=== PATIENT | male | born 1945 | race Caucasian/White ===

== ENCOUNTER → 2018-02-09 10:51 | Outpatient (CLI) | payer MEDICARE, OTHER, SELFPAY ==
--- NOTE | 2018-02-09 | DI.US.S_ITS ---
PROCEDURE: US THYROID INDICATIONS: CHRONIC SINUSITIS/DYSPHAGIA TECHNIQUE: Real-time scanning was performed of the thyroid gland, with image documentation. COMPARISON: None. FINDINGS: Right: Thyroid lobe measures 4.2 x 1.8 x 1.6 cm, and is homogeneous in echotexture. Colloid cyst measuring 3 mm Left: Thyroid lobe measures 4.4 x 1.7 x 1.8 cm, and is homogenous in echotexture. Colloid cyst measuring 3 mm Isthmus: 3.0 mm thick. IMPRESSION: Bilateral sub-5 mm colloid cyst. Dictated by: Reggie WALDRON Interpreted: Wendy Estrada MD on 02/09/2018 at 13:04 Approved by: Wendy Estrada M.D. on 02/09/2018 at 15:10
--- NOTE | 2018-02-09 | DI.CT.S_ITS ---
PROCEDURE: CT SINUS SCREEN WO CON INDICATIONS: CHRONIC SINUSITIS/DYSPHAGIA TECHNIQUE: Noncontrast 3.0 mm axial images acquired from the frontal sinuses to the mid-sella, with coronal and sagittal reformats. For radiation dose reduction, the following was used: automated exposure control, adjustment of mA and/or kV according to patient size. COMPARISON: None. FINDINGS: Image quality: Excellent. Maxillary Sinuses: A portion of the medial wall of the right maxillary sinus has been removed. There is a tiny mucous retention cyst seen along lateral inferior aspect of the left maxillary sinus, as on series 2 image 6. Sinuses are otherwise clear. Ethmoid Air Cells: Portions of the right ethmoid air cell septations have been removed. Sinuses are clear. Sphenoid Sinuses: No bony remodeling or destruction. Sinuses are clear. Frontal Sinuses: No bony remodeling or destruction. Sinuses are clear. Ostiomeatal Complexes: Prior right-sided antrectomy. The left ostiomeatal complex is mildly consultation narrowing, yet remains patent. Miscellaneous: Visualized intra-orbital contents are normal. No josh bullosa or paradoxical turbinate curvature. There is mild leftward nasal septal deviation. IMPRESSION: No significant active paranasal sinus disease can be seen. Right-sided prior sinus surgery, with antrectomy and removal of portions of the ethmoid air cell septations. Mild leftward nasal septal deviation noted. Dictated by: Raymond Whitman M.D. on 02/09/2018 at 11:05 Approved by: Raymond Whitman M.D. on 02/09/2018 at 11:10
== END ==
PROVIDERS: Family Provider Family Medicine; PCP Family Medicine; Visit Provider Otolaryngology
DX: J32.9 Chronic sinusitis, unspecified (principal); J34.2 Deviated nasal septum; R13.10 Dysphagia, unspecified
CPT/HCPCS: 70486; 76536

== ENCOUNTER → 2018-04-10 15:04 | Outpatient (CLI) | payer MEDICARE, OTHER, SELFPAY ==
[2018-04-10 15:40] LABS: Add Manual Diff / Slide Review NO; Hematocrit 41.9 % (41-53); Hemoglobin 14.1 g/dL (13.5-17.5); Lymphocytes Percent Auto 26.7 % (25-40); Mean Corpuscular HGB Conc 33.7 % (30-36); Mean Corpuscular Hemoglobin 31.1 PG (26-34); Mean Corpuscular Volume 92.2 fL (80-100); Monocytes Percent Auto 9.6 % (3-14); Neutrophils Absolute Auto 4000 /uL (3000-5900); Neutrophils Percent Auto 59.7 % (50-75); Platelet Count 256 X10^3/uL (150-400); Red Blood Cell Count 4.55 X10^6/uL (4.5-5.9); Red Cell Distribution Width 15.3 % (11.6-14.8); White Blood Cell Count 6.6 X10^3/uL (4.5-11.0)
[2018-04-10 15:47] LABS: Blood Urea Nitrogen 19 mg/dL (9-20); Calcium 9.2 mg/dL (8.4-10.2); Carbon Dioxide 26 mmol/L (22-32); Chloride 109 mmol/L (98-107); Estimated Glomerular Filt Rate > 60.0 mL/min (>60); Glucose 93 mg/dL (80-110); HEMOLYSIS < 15 (0-50); Potassium 4.4 mmol/L (3.4-5.1); Sodium 144 mmol/L (137-145)
[2018-04-10 16:37] LABS: Thyroid Stimulating Hormone 3.99 uIU/mL (0.47-4.68)
== END ==
PROVIDERS: Family Provider Family Medicine; PCP Family Medicine; Visit Provider Family Medicine
DX: I10 Essential (primary) hypertension (principal); R60.9 Edema, unspecified; D64.9 Anemia, unspecified; E03.9 Hypothyroidism, unspecified
CPT/HCPCS: 36415; 80048; 84443; 85025

== ENCOUNTER → 2018-06-12 09:38 | Outpatient (CLI) | payer MEDICARE, OTHER, SELFPAY ==
[2018-06-12 10:15] LABS: Hematocrit 42.5 % (41-53); Hemoglobin 14.5 g/dL (13.5-17.5); Mean Corpuscular HGB Conc 34.1 % (30-36); Mean Corpuscular Hemoglobin 31.5 PG (26-34); Mean Corpuscular Volume 92.2 fL (80-100); Platelet Count 246 X10^3/uL (150-400); Red Blood Cell Count 4.61 X10^6/uL (4.5-5.9); Red Cell Distribution Width 13.8 % (11.6-14.8); White Blood Cell Count 8.5 X10^3/uL (4.5-11.0)
[2018-06-12 10:42] LABS: Blood Urea Nitrogen 22 mg/dL (9-20); Calcium 8.8 mg/dL (8.4-10.2); Carbon Dioxide 28 mmol/L (22-32); Chloride 108 mmol/L (98-107); Cholesterol 184 mg/dL (140-199); Estimated Glomerular Filt Rate > 60.0 mL/min (>60); Glucose 112 mg/dL (80-110); HDL Cholesterol 55 mg/dL (40-60); HEMOLYSIS < 15 (0-50); LDL Cholesterol Calculated 111 mg/dL (<100); Potassium 4.3 mmol/L (3.4-5.1); Sodium 145 mmol/L (137-145); Triglycerides 90 mg/dL (35-150)
[2018-06-12 11:13] LABS: Neutrophils Absolute Manual 6545 /uL (3000-5900); Total Cells Counted 100
[2018-06-12 11:15] LABS: RBC Morphology Normal Morphology
[2018-06-13 20:22] LABS: Prostate Specific Antigen Scrn 3.06 ng/mL (0.1-4.0)
== END ==
PROVIDERS: Family Provider Family Medicine; PCP Family Medicine; Visit Provider Family Medicine
DX: I10 Essential (primary) hypertension (principal); R97.20 Elevated prostate specific antigen [PSA]
CPT/HCPCS: 36415; 80048; 80061; 85025; G0103

== ENCOUNTER → 2019-05-30 08:54 | Outpatient (CLI) | payer MEDICARE, OTHER, SELFPAY ==
[2019-05-30 11:05] LABS: Add Manual Diff / Slide Review NO; Basophils Absolute Auto 100 /uL (0-100); Basophils Percent Auto 0.9 % (0-2); Eosinophils Absolute Auto 200 /uL (0-450); Eosinophils Percent Auto 3.9 % (2-4); Hemoglobin 14.7 g/dL (13.5-17.5); Lymphocytes Absolute Auto 1600 /uL (1100-4500); Lymphocytes Percent Auto 25.9 % (25-40); Mean Corpuscular HGB Conc 34.9 % (30-36); Mean Corpuscular Hemoglobin 32.9 PG (26-34); Mean Corpuscular Volume 94.3 fL (80-100); Monocytes Absolute Auto 700 /uL (0-900); Monocytes Percent Auto 10.9 % (3-14); Neutrophils Absolute Auto 3600 /uL (1500-7000); Neutrophils Percent Auto 58.4 % (50-75); Platelet Count 245 X10^3/uL (150-400); Red Blood Cell Count 4.45 X10^6/uL (4.5-5.9); Red Cell Distribution Width 14.2 % (11.6-14.8); White Blood Cell Count 6.2 X10^3/uL (4.5-11.0)
[2019-05-30 11:11] LABS: Alanine Aminotransferase 38 IU/L (21-72); Albumin 4.1 g/dL (3.5-5.0); Albumin Globulin Ratio 1.5 (1.0-2.8); Alkaline Phosphatase 55 U/L (38-126); Aspartate Aminotransferase 40 IU/L (17-59); Bilirubin Total 0.9 mg/dL (0.2-1.3); Blood Urea Nitrogen 18 mg/dL (9-20); Calcium 9.2 mg/dL (8.4-10.2); Carbon Dioxide 30 mmol/L (22-32); Chloride 104 mmol/L (98-107); Cholesterol 189 mg/dL (140-199); Estimated Glomerular Filt Rate > 60.0 mL/min (>60); Globulin 2.8 g/dL (1.7-4.1); Glucose 123 mg/dL (80-110); HDL Cholesterol 70 mg/dL (40-60); HEMOLYSIS < 15 (0-50); LDL Cholesterol Calculated 105 mg/dL (<100); Potassium 4.6 mmol/L (3.4-5.1); Sodium 142 mmol/L (137-145); Total Protein 6.9 g/dL (6.3-8.2); Triglycerides 68 mg/dL (35-150)
[2019-05-30 11:44] LABS: Thyroid Stimulating Hormone 5.81 uIU/mL (0.47-4.68)
[2019-05-30 11:45] LABS: Prostate Specific Antigen Scrn 3.52 ng/mL (0.1-4.0)
== END ==
PROVIDERS: PCP Family Medicine; Visit Provider Family Medicine
DX: I10 Essential (primary) hypertension (principal); Z12.5 Encounter for screening for malignant neoplasm of prostate
CPT/HCPCS: 36415; 80053; 80061; 84443; 85025; G0103

== ENCOUNTER → 2019-08-27 13:34 | Outpatient (CLI) | payer MEDICARE, OTHER, SELFPAY ==
[2019-08-27 15:46] LABS: Free T3, Triiodothyronine Free 3.03 pg/mL (2.77-5.27)
[2019-08-27 16:00] LABS: Thyroid Stimulating Hormone 3.91 uIU/mL (0.47-4.68)
== END ==
PROVIDERS: PCP Family Medicine; Visit Provider Family Medicine
DX: E03.9 Hypothyroidism, unspecified (principal)
CPT/HCPCS: 36415; 84439; 84443; 84481

== ENCOUNTER → 2020-04-03 11:16 | Outpatient (CLI) | payer MEDICARE, OTHER, SELFPAY ==
[2020-04-04 09:59] LABS: COVID19 Sendout Not Detected (Not Detect)
== END ==
PROVIDERS: PCP Family Medicine; Visit Provider Physician Assistant
DX: Z01.812 Encounter for preprocedural laboratory examination (principal)
CPT/HCPCS: 87635

== ENCOUNTER → 2020-04-23 18:00 | Outpatient (CLI) | payer MEDICARE, OTHER, SELFPAY ==
--- NOTE | 2020-04-23 18:03 | DI.MRI.S_ITS ---
PROCEDURE: MR LUMBAR SPINE WO CON INDICATIONS: Pain TECHNIQUE: Noncontrast sagittal T1 spin echo and T2 fast echo, sagittal STIR, axial T1 and T2 fast spin echo through the lumbar spine. In cases with scoliosis, additional coronal T2 fast spin echo may be performed. COMPARISON: [facility], MR, L-SPINE WITHOUT CONTRAST, 08/01/2007, 7:06. [facility], XA, L/S-SPINE 2-3 VIEWS PAIN DEPT, 03/07/2013, 9:50. FINDINGS: Image quality: Excellent. Alignment and Curvature: There is normal bony alignment. Bones: Postsurgical changes compatible with prior L3-L4 and L4-L5 right laminotomy is noted. Reactive endplate changes noted adjacent to the L2-L3, L3-L4 and L4-L5 discs. No acute vertebral body compression fractures. Spinal Cord: Conus medullaris terminates at the L1 level. Visualized cord demonstrates normal signal and size. Paraspinous Soft Tissues: No paravertebral masses. Bilateral renal cysts. L1-L2: Slight loss of disc signal. Minimal, diffuse disc bulge. No central stenosis. No neural foraminal narrowing. No neural compression. L2-L3: Loss of disc signal and height. Moderate, diffuse disc bulge. [id number] bilateral facet hypertrophy. Severe narrowing of the central canal with compression of the nerve roots of the cauda equina. Moderate bilateral neural foraminal narrowing. L3-L4: Loss of disc signal and height. Moderate, diffuse disc bulge. Mild right and moderate left facet hypertrophy. Moderate narrowing of the central canal. Moderate bilateral neural foraminal narrowing. No neural compression. L4-L5: Loss of disc signal and slight loss of disc height. Mild, diffuse disc bulge. Moderate bilateral facet hypertrophy. Mild to moderate narrowing of the central canal. Severe right and moderate left neural foraminal narrowing with compression of the exiting right L4 nerve root. L5-S1: Loss of disc signal. Mild, diffuse disc bulge. Moderate to severe bilateral neural foraminal narrowing. Severe narrowing of the central canal with slight compression of the nerve roots of the cauda equina. Moderate to severe bilateral neural foraminal narrowing with slight compression of the exiting bilateral L5 nerve roots. IMPRESSION: 1. Multilevel degenerative disease. 2. Multilevel facet arthropathy. 3. Severe L2-L3 and L5-S1 neural foraminal narrowing with compression of the nerve roots of the cauda equina. 4. Severe right L4-L5 neural foraminal narrowing with compression of the exiting right L4 nerve root. Moderate to severe bilateral L5-S1 neural foraminal narrowing with slight compression of the exiting bilateral L5 nerve roots. Dictated by: Darlyn Hills MD, PhD on 04/24/2020 at 12:12 Approved by: Darlyn Hills MD, PhD on 04/24/2020 at 12:17
== END ==
PROVIDERS: PCP Family Medicine; Referring Provider Family Medicine; Visit Provider Family Medicine
DX: M54.5 Low back pain (principal); M51.36 Other intervertebral disc degeneration, lumbar region; M51.37 Other intervertebral disc degeneration, lumbosacral region; M47.816 Spondylosis without myelopathy or radiculopathy, lumbar region; M48.061 Spinal stenosis, lumbar region without neurogenic claudication; M48.07 Spinal stenosis, lumbosacral region
CPT/HCPCS: 72148

== ENCOUNTER → 2020-05-09 11:09 | Outpatient (CLI) | payer MEDICARE, OTHER, SELFPAY ==
--- NOTE | 2020-05-09 | DI.RAD.S_ITS ---
PROCEDURE: XR HIP W PEL IF DONE LT MIN 4V INDICATIONS: Pain in right hip TECHNIQUE: AP pelvis with lateral view(s) of the bilateral hip(s). COMPARISON: [facility], , [id number] W PEL IF PERFORMED, 11/14/2015, 9:10. FINDINGS: Bones: No acute fracture or dislocation. Right hip arthroplasty is intact. There is extensive heterotopic ossification of the right greater trochanter and the right acetabulum. There is mild left hip joint space narrowing. Soft tissues: The visualized bowel gas pattern is normal. No suspicious soft tissue calcifications. IMPRESSION: Degenerative change and heterotopic ossification of the right hip joint. Dictated by: Radha Hernández M.D. on 05/09/2020 at 13:23 Approved by: Radha Hernández M.D. on 05/09/2020 at 13:24
== END ==
PROVIDERS: PCP Family Medicine; Referring Provider Neurological Surgery; Visit Provider Neurological Surgery
DX: M25.551 Pain in right hip (principal); Z96.641 Presence of right artificial hip joint
CPT/HCPCS: 73522

== ENCOUNTER → 2020-05-22 13:18 | Outpatient (CLI) | payer MEDICARE, OTHER, SELFPAY | PROVIDERS: Family Provider Family Medicine; PCP Family Medicine; Referring Provider Neurological Surgery; Visit Provider Neurological Surgery | DX: M47.816 Spondylosis without myelopathy or radiculopathy, lumbar region (principal); M48.061 Spinal stenosis, lumbar region without neurogenic claudication | CPT/HCPCS: 95886; 95909 ==

== ENCOUNTER 2020-05-22 14:16 | Emergency (ER) | payer MEDICARE, OTHER, SELFPAY ==
[2020-05-22] VITALS (24 sets, daily range): BP systolic 188–224; BP diastolic 88–149; PULSE 54–59; RESP 8–45; TEMP 36.9; O2SAT 96–99; BMI 31.6
--- NOTE | 2020-05-22 14:23 | DI.RAD.S_ITS ---
PROCEDURE: XR CHEST 1V INDICATIONS: chest pain TECHNIQUE: One view of the chest was acquired. COMPARISON: [facility], CHEST 2 VIEW, 09/15/2015, 10:52. [facility], CHEST 2 VIEW, 01/03/2018, 12:15. FINDINGS: Surgical changes and devices: Postoperative change of the right shoulder can be seen. Lungs and pleura: Lungs are clear. No pleural effusions or pneumothorax. Mediastinum: Mediastinal contours appear normal. Heart size is at the upper limits of normal. Bones and chest wall: No suspicious bony lesions. Age-appropriate bony degenerative changes are seen. Overlying soft tissues appear unremarkable. IMPRESSION: No significant single-view chest abnormality is seen for age. If clinically appropriate, a short-term followup chest series (with PA and lateral views) performed in deep inspiration is suggested for further evaluation. Dictated by: Raymond Whitman M.D. on 05/22/2020 at 13:57 Approved by: Raymond Whitman M.D. on 05/22/2020 at 13:59
--- NOTE | 2020-05-22 14:41 | ED_ITS ---
HPI - General Adult General Chief complaint: Hypertension Stated complaint: hypertension Time Seen by Provider: 05/22/20 14:19 Source: patient Mode of arrival: Ambulatory History of Present Illness HPI narrative: Patient is 74-year-old male with history of hypertension presenting with hypertension. He was of getting a nerve conduction study done 1 a noted that his blood pressure was extremely elevated he currently has a systolic of 221/105. He is here in the ED for further evaluation. He denies any chest pain headache shortness of breath dizziness nausea weakness numbness or tingling. He says if they did not tell his blood pressure was elevated he would not know. He says he usually does check his blood pressure at home it is usually systolic of 155 however he has not been checking it lately. He overall feels okay. He does have chronic ongoing back pain but he says that is not any worse than usual. Related Data Home Medications Medication Instructions Recorded Confirmed MULTIVITAMIN (Multivitamin 1 cap PO EVERY DAY #0 08/06/10 04/14/20 -) ASPIRIN (Aspir-Low) 81 mg PO AM #0 07/16/11 04/14/20 NAPROXEN EC - 500 mg PO AM PRN #0 08/29/19 04/14/20 (EC-Naprosyn) Previous Rx's Medication Instructions Recorded sildenafil (pulm.hypertension) 20 See Rx Instructions PO ONCE #50 tab 05/31/19 mg tablet omeprazole 40 mg capsule,delayed 40 mg PO DAILY #90 cap 08/29/19 release albuterol sulfate 90 mcg/actuation 2 puff INHALATION Q6H PRN #8.5 gram 10/23/19 aerosol inhaler citalopram 20 mg tablet 20 mg PO DAILY #60 tab 01/09/20 losartan 50 mg tablet 50 mg PO DAILY #90 tab 03/19/20 tramadol 50 mg tablet 50 mg PO Q6H PRN #30 tab 04/18/20 hydrochlorothiazide 25 mg PO QAM #14 tab 05/22/20 Allergies Allergy/AdvReac Type Severity Reaction Status Date / Time cefazolin [CEFAZOLIN] Allergy Mild Verified 05/22/20 14:21 cetirizine [CETIRIZINE] Allergy Mild Rash Verified 05/22/20 14:21 hydroxyzine [HYDROXYZINE] Allergy Mild Rash Verified 05/22/20 14:21 oxycodone [OXYCODONE] Allergy Mild RASH Verified 05/22/20 14:21 Review of Systems Review of Systems ROS Unobtainable: All systems reviewed & are unremarkable except as noted in HPI and below Constitutional Constitutional: Denies frequent falls ENT Ears, Nose, Mouth, and Throat: Denies dizziness Cardiovascular Cardiovascular: Denies chest pain, Denies irregular heart rhythm, Denies lightheadedness, Denies palpitations, Denies dyspnea, Denies dyspnea on exertion and Denies orthopnea Respiratory Respiratory: Denies cough, Denies dyspnea, Denies dyspnea on exertion and Denies wheezing Gastrointestinal Gastrointestinal: Denies abdominal pain, Denies change in bowel habits, Denies diarrhea, Denies nausea and Denies vomiting Musculoskeletal Musculoskeletal: Reports back pain, Denies myalgias, Denies joint swelling and Denies numbness Integumentary/Breasts Skin/Breast: Denies pruritus, Denies erythema, Denies rash and Denies wounds Neurologic Neurologic: Denies behavioral changes, Denies confusion, Denies dizziness, Denies frequent falls and Denies numbness Psychiatric Psychiatric: Denies behavioral changes and Denies confusion Endocrine Endocrine: Denies palpitations Allergic/Immunologic Allergic/Immunologic: Denies wheezing Patient History Medical History Back pain (Acute) Body mass index (BMI) of 32.0 to 32.9 in adult (01/03/17) Depression (11/20/15) Essential hypertension (04/26/17) Hypothyroidism (11/20/15) Mixed hyperlipidemia (11/20/15) Obstructive sleep apnea (Acute) Social History Smoking Status: Never smoker Smoking Status: Never smoker Exam Initial Vital Signs Initial Vital Signs: Vital Signs Temperature 98.4 F 05/22/20 14:21 Pulse Rate 58 L 05/22/20 14:21 Respiratory Rate 16 05/22/20 14:21 Blood Pressure 221/102 H 05/22/20 14:21 Pulse Oximetry 99 05/22/20 14:21 GENERAL: Well-appearing, well-nourished and in no acute distress. HEENT: Head atraumatic,EOMI, pupils reactive, face symmetric, moist mucous membranes CARDIOVASCULAR: Regular rate and rhythm without murmurs, rubs or gallops. RESPIRATORY: Breath sounds equal bilaterally, no wheezes rales or rhonchi. ABDOMEN: Soft, nontender. Normoactive bowel sounds all 4 quadrants. No guarding or rebound. : No CVA tenderness EXTREMITIES: Normal range of motion, no clubbing or edema. Neurovascularly intact NEUROLOGICAL: Alert and oriented x4.Normal gait and speech. SKIN: Warm, dry, no laceration, no petechiae, no rashes or lesions. Course Orders Ordered: ED Orders 05/22/20 14:21 EKG-12 Lead Stat 05/22/20 14:23 XR chest 1V Stat 05/22/20 14:39 Complete Blood Count AUTO DIFF Stat Comprehensive Metabolic Panel Stat Lipase Stat Partial Thromboplastin Time Stat Prothrombin Time INR Stat Troponin & CK Cardiac Panel Stat Discontinued Medications Labetalol HCl (Trandate) 10 mg IV NOW ONE Stop: 05/22/20 16:16 Last Admin: 05/22/20 16:29 Dose: 10 mg Documented by: LAEX Labetalol HCl (Trandate) 10 mg IV NOW ONE Stop: 05/22/20 17:01 Last Admin: 05/22/20 17:06 Dose: 10 mg Documented by: ALEX Losartan Potassium (Cozaar) 50 mg PO NOW ONE Stop: 05/22/20 17:01 Last Admin: 05/22/20 17:07 Dose: 50 mg Documented by: ALEX Vital Signs Vital signs: Vital Signs - 8 hr 05/22/20 14:21 05/22/20 14:24 05/22/20 14:30 Temperature 98.4 F Pulse Rate 58 L 58 L 59 L Respiratory Rate 16 25 H Blood Pressure 221/102 H 215/102 H Pulse Oximetry 99 99 99 05/22/20 15:00 05/22/20 15:01 05/22/20 15:30 Temperature Pulse Rate 56 L 57 L 55 L Respiratory Rate 14 16 13 Blood Pressure 191/88 H Pulse Oximetry 98 98 98 05/22/20 15:31 05/22/20 16:00 05/22/20 16:01 Temperature Pulse Rate 57 L 56 L 55 L Respiratory Rate 14 8 L 10 L Blood Pressure 188/131 H 214/91 H Pulse Oximetry 98 98 98 05/22/20 16:25 05/22/20 16:29 05/22/20 16:30 Temperature Pulse Rate 59 L 57 L 56 L Respiratory Rate 19 18 Blood Pressure 207/120 H 207/120 H 199/95 H Pulse Oximetry 97 97 05/22/20 16:37 05/22/20 16:57 05/22/20 17:00 Temperature Pulse Rate 54 L 57 L 54 L Respiratory Rate 20 45 H 16 Blood Pressure 224/94 H 215/97 H Pulse Oximetry 97 96 97 05/22/20 17:06 05/22/20 17:07 05/22/20 17:09 Temperature Pulse Rate 54 L 54 L 59 L Respiratory Rate 21 Blood Pressure 215/97 H 215/97 H 218/98 H Pulse Oximetry 97 05/22/20 17:10 05/22/20 17:30 05/22/20 17:31 Temperature Pulse Rate 59 L 55 L 54 L Respiratory Rate 13 15 Blood Pressure 218/98 H 193/149 H Pulse Oximetry 97 97 05/22/20 17:33 05/22/20 17:50 05/22/20 17:56 Temperature Pulse Rate 55 L 55 L 55 L Respiratory Rate 28 H 16 Blood Pressure 199/98 H 199/98 H Pulse Oximetry 97 98 Medical Decision Making Lab Data Lab results reviewed: Yes I reviewed the patient's lab results. Result diagrams: 05/22/20 14:39 05/22/20 14:39 Labs: Lab Results 05/22/20 05/22/20 05/22/20 Range/Units 14:39 14:39 14:39 WBC 5.7 (4.5-11.0) X10^3/uL RBC 4.15 L (4.5-5.9) X10^6/uL Hgb 13.6 (13.5-17.5) g/dL Hct 40.1 L (41-53) % MCV 96.6 (80-100) fL MCH 32.7 (26-34) PG MCHC 33.9 (30-36) % RDW 13.8 (11.6-14.8) % Plt Count 224 (150-400) X10^3/uL Neut % (Auto) 59.6 (50-75) % Lymph % (Auto) 25.6 (25-40) % Sawyer % (Auto) 11.8 (3-14) % Eos % (Auto) 2.0 (2-4) % Baso % (Auto) 1.0 (0-2) % Neut # (Auto) 3400 (6947-8014) /uL Lymph # (Auto) 1500 (4353-5154) /uL Sawyer # (Auto) 700 (0-900) /uL Eos # (Auto) 100 (0-450) /uL Baso # (Auto) 100 (0-100) /uL PT 11.5 (10.1-12.7) SECONDS INR 1.0 (0.9-1.3) APTT 35 (26.4-36.2) SECONDS Sodium 139 (137-145) mmol/L Potassium 4.7 (3.4-5.1) mmol/L Chloride 108 H (98-107) mmol/L Carbon Dioxide 29 (22-32) mmol/L BUN 18 (9-20) mg/dL Creatinine 1.10 (0.66-1.25) mg/dL Estimated GFR > 60.0 (>60) mL/min BUN/Creatinine Ratio 16.4 (6-22) Glucose 104 (80-110) mg/dL Calcium 9.0 (8.4-10.2) mg/dL Total Bilirubin 0.7 (0.2-1.3) mg/dL AST 53 (17-59) IU/L ALT 52 H (<50) IU/L Alkaline Phosphatase 59 (38-126) U/L Total Creatine Kinase 141 (55-170) U/L CK-MB (CK-2) 2.76 H (<2.37) ng/mL CK-MB (CK-2) Rel Index 2.0 (1.5-5.0) % Troponin I < 0.012 (0.01-0.034) ng/mL Total Protein 6.9 (6.3-8.2) g/dL Albumin 4.2 (3.5-5.0) g/dL Globulin 2.7 (1.7-4.1) g/dL Albumin/Globulin Ratio 1.6 (1.0-2.8) Lipase 184 (23-300) U/L Imaging Data Chest x-ray: Radiologist's Impression: PROCEDURE: XR CHEST 1V INDICATIONS: chest pain TECHNIQUE: One view of the chest was acquired. COMPARISON: [facility], CHEST 2 VIEW, 09/15/2015, 10:52. [facility], CHEST 2 VIEW, 01/03/2018, 12:15. FINDINGS: Surgical changes and devices: Postoperative change of the right shoulder can be seen. Lungs and pleura: Lungs are clear. No pleural effusions or pneumothorax. Mediastinum: Mediastinal contours appear normal. Heart size is at the upper limits of normal. Bones and chest wall: No suspicious bony lesions. Age-appropriate bony degenerative changes are seen. Overlying soft tissues appear unremarkable. IMPRESSION: No significant single-view chest abnormality is seen for age. If clinically appropriate, a short-term followup chest series (with PA and lateral views) performed in deep inspiration is suggested for further evaluation. Dictated by: Raymond Whitman M.D. on 05/22/2020 at 13:57 ECG Data Attestation: I personally reviewed and interpreted this ECG as follows: Prior ECG tracings: available for review Interpretation: Normal sinus rhythm rate 60 p.r. interval 198 QRS [address] changes previous EKG in 2011 MDM Narrative Medical decision making narrative: Patient persistently hypertensive initially it did come down some however started become elevated again with systolic over 200. Patient is completely asymptomatic no chest pain no headache no sign of end-organ damage. He is only on losartan. He was given a dose of labetalol in the ED an extra dose of losartan I will start him on hydrochlorothiazide and have him follow-up with his primary care provider. Discharge Plan Departure Patient Disposition: Home Clinical Impression: Hypertension Qualifiers: Hypertension type: essential hypertension Qualified Code(s): I10 - Essential (primary) hypertension Discharge Date/Time: 05/22/20 18:05 Instructions: DI for High Blood Pressure Activity Restrictions/Additional Instructions: *You have been diagnosed with hypertension *What to do: You will likely need adjustment pain for blood pressure me dication. Please take your blood pressure once a day and record it. *Continue to take medications as directed Hydrochlorothiazide 25 mg once daily-->[facility] *Follow up with your primary care provider in 2-3 days *Return to ER if you should have headache chest pain shortness of breath palpitation or any new, worsening or concerning symptoms Prescriptions: New hydrochlorothiazide 25 mg tablet 25 mg PO QAM Qty: 14 RF: 0 No Action MULTIVITAMIN (Multivitamin -) 1 cap PO EVERY DAY Qty: 0 RF: 0 ASPIRIN (Aspir-Low) 81 mg PO AM Qty: 0 RF: 0 NAPROXEN EC - (EC-Naprosyn) 500 mg PO AM PRNQty: 0 RF: 0 citalopram 20 mg tablet 20 mg PO DAILY Qty: 60 RF: 5 losartan 50 mg tablet 50 mg PO DAILY Qty: 90 RF: 3 tramadol 50 mg tablet 50 mg PO Q6H PRN (Reason: pain) Qty: 30 RF: 0 sildenafil (pulm.hypertension) 20 mg tablet See Rx Instructions PO ONCE Qty: 50 RF: 5 omeprazole 40 mg capsule,delayed release(DR/EC) 40 mg PO DAILY Qty: 90 RF: 3 albuterol sulfate 90 mcg/actuation HFA aerosol inhaler 2 puff INHALATION Q6H PRN (Reason: shortness of breath or wheezing) Qty: 8.5 RF: 5 Referrals: Jamal Verma MD [Primary Care Provider] -
[2020-05-22 14:45] LABS: Add Manual Diff / Slide Review NO; Basophils Absolute Auto 100 /uL (0-100); Eosinophils Absolute Auto 100 /uL (0-450); Hematocrit 40.1 % (41-53); Hemoglobin 13.6 g/dL (13.5-17.5); Lymphocytes Absolute Auto 1500 /uL (1100-4500); Lymphocytes Percent Auto 25.6 % (25-40); Mean Corpuscular HGB Conc 33.9 % (30-36); Mean Corpuscular Hemoglobin 32.7 PG (26-34); Mean Corpuscular Volume 96.6 fL (80-100); Monocytes Absolute Auto 700 /uL (0-900); Monocytes Percent Auto 11.8 % (3-14); Neutrophils Absolute Auto 3400 /uL (1500-7000); Neutrophils Percent Auto 59.6 % (50-75); Platelet Count 224 X10^3/uL (150-400); Red Blood Cell Count 4.15 X10^6/uL (4.5-5.9); Red Cell Distribution Width 13.8 % (11.6-14.8); White Blood Cell Count 5.7 X10^3/uL (4.5-11.0)
[2020-05-22 14:56] LABS: Prothrombin Time 11.5 SECONDS (10.1-12.7)
[2020-05-22 14:58] LABS: Alanine Aminotransferase 52 IU/L (<50); Albumin 4.2 g/dL (3.5-5.0); Albumin Globulin Ratio 1.6 (1.0-2.8); Alkaline Phosphatase 59 U/L (38-126); Aspartate Aminotransferase 53 IU/L (17-59); BUN Creatinine Ratio 16.4 (6-22); Bilirubin Total 0.7 mg/dL (0.2-1.3); Blood Urea Nitrogen 18 mg/dL (9-20); Carbon Dioxide 29 mmol/L (22-32); Chloride 108 mmol/L (98-107); Creatine Kinase 141 U/L (55-170); Estimated Glomerular Filt Rate > 60.0 mL/min (>60); Globulin 2.7 g/dL (1.7-4.1); Glucose 104 mg/dL (80-110); HEMOLYSIS < 15 (0-50); Lipase 184 U/L (23-300); PTT Partial Thromboplastin Tim 35 SECONDS (26.4-36.2); Potassium 4.7 mmol/L (3.4-5.1); Sodium 139 mmol/L (137-145); Total Protein 6.9 g/dL (6.3-8.2)
[2020-05-22 15:09] LABS: Troponin I < 0.012 ng/mL (0.01-0.034)
[2020-05-22 15:13] LABS: Creatine Kinase MB 2.76 ng/mL (<2.37)
[2020-05-22] MEDS: LABETALOL 20 MG/4 ML SYRINGE 10 MG IV ×2 (16:29→17:06)
[2020-05-22] MEDS: LOSARTAN 50 MG TABLET PO (17:07)
--- NOTE | 2020-05-22 18:05 | PC.NURSE ---
Patient's blood pressure was high (see chart) but this was discussed with the provider and the provider made the choice to discharge the patient with blood pressure medication that was sent to pharmacy. The patient was not symptomatic.
== END 2020-05-22 18:05 | disposition home or self-care (01) ==
PROVIDERS: Emergency Provider Emergency Medicine; Family Provider Family Medicine; PCP Family Medicine
DX: I10 Essential (primary) hypertension (principal); M54.9 Dorsalgia, unspecified; R07.9 Chest pain, unspecified; M47.816 Spondylosis without myelopathy or radiculopathy, lumbar region; M48.061 Spinal stenosis, lumbar region without neurogenic claudication
CPT/HCPCS: 36415; 71045; 80053; 82550; 82553; 83690; 84484; 85025; 85610; 85730; 93005; 95886; 95909; 96374; 96376; 99284

== ENCOUNTER → 2020-07-01 11:52 | Outpatient (CLI) | payer MEDICARE, OTHER, SELFPAY ==
[2020-07-01 12:51] LABS: BUN Creatinine Ratio 23.3 (6-22); Blood Urea Nitrogen 28 mg/dL (9-20); Calcium 9.1 mg/dL (8.4-10.2); Carbon Dioxide 29 mmol/L (22-32); Chloride 107 mmol/L (98-107); Glucose 123 mg/dL (80-110); HEMOLYSIS < 15 (0-50); Potassium 4.4 mmol/L (3.4-5.1); Sodium 140 mmol/L (137-145)
== END ==
PROVIDERS: Family Provider Family Medicine; PCP Family Medicine; Referring Provider Family Medicine; Visit Provider Family Medicine
DX: I10 Essential (primary) hypertension (principal)
CPT/HCPCS: 36415; 80048

== ENCOUNTER → 2020-09-01 09:15 | Outpatient (CLI) | payer MEDICARE, OTHER, SELFPAY ==
[2020-09-01 10:15] LABS: Add Manual Diff / Slide Review NO; Basophils Absolute Auto 0 /uL (0-100); Basophils Percent Auto 0.7 % (0-2); Eosinophils Absolute Auto 100 /uL (0-450); Eosinophils Percent Auto 1.3 % (2-4); Hematocrit 38.9 % (41-53); Lymphocytes Absolute Auto 1600 /uL (1100-4500); Lymphocytes Percent Auto 23.4 % (25-40); Mean Corpuscular HGB Conc 33.3 % (30-36); Mean Corpuscular Hemoglobin 32.5 PG (26-34); Mean Corpuscular Volume 97.7 fL (80-100); Monocytes Absolute Auto 700 /uL (0-900); Monocytes Percent Auto 10.1 % (3-14); Neutrophils Absolute Auto 4400 /uL (1500-7000); Neutrophils Percent Auto 64.5 % (50-75); Platelet Count 225 X10^3/uL (150-400); Red Blood Cell Count 3.98 X10^6/uL (4.5-5.9); White Blood Cell Count 6.9 X10^3/uL (4.5-11.0)
[2020-09-01 10:32] LABS: Alanine Aminotransferase 47 IU/L (<50); Albumin 3.9 g/dL (3.5-5.0); Albumin Globulin Ratio 1.4 (1.0-2.8); Alkaline Phosphatase 48 U/L (38-126); Aspartate Aminotransferase 41 IU/L (17-59); BUN Creatinine Ratio 23.6 (6-22); Bilirubin Total 0.8 mg/dL (0.2-1.3); Blood Urea Nitrogen 29 mg/dL (9-20); Calcium 9.1 mg/dL (8.4-10.2); Carbon Dioxide 31 mmol/L (22-32); Chloride 105 mmol/L (98-107); Estimated Glomerular Filt Rate 57.4 mL/min (>60); Globulin 2.7 g/dL (1.7-4.1); Glucose 110 mg/dL (80-110); HEMOLYSIS < 15 (0-50); Potassium 4.5 mmol/L (3.4-5.1); Sodium 137 mmol/L (137-145); Total Protein 6.6 g/dL (6.3-8.2)
== END ==
PROVIDERS: Family Provider Family Medicine; PCP Family Medicine; Referring Provider Family Medicine; Visit Provider Family Medicine
DX: E03.9 Hypothyroidism, unspecified (principal); E78.2 Mixed hyperlipidemia; I10 Essential (primary) hypertension
CPT/HCPCS: 36415; 80053; 85025

== ENCOUNTER → 2020-10-31 09:31 | Outpatient (CLI) | payer MEDICARE, SELFPAY ==
--- NOTE | 2020-10-31 09:33 | DI.RAD.S_ITS ---
PROCEDURE: XR WRIST RT MIN 3V INDICATIONS: s/p FOOSH on r arm yesterday, pain and limited ROM TECHNIQUE: 4 views of the wrist were acquired. COMPARISON: None. FINDINGS: Bones: Moderately distorted both at the distal radius and ulna in addition to what appears to be an acute fracture at the base of the ulnar-styloid process. Suspect old fracture and new fracture superimposed. Scaphoid view: No trauma to the scaphoid is found. Soft tissues: No suspicious soft tissue calcifications. IMPRESSION: Suspect old trauma to the distal radius and ulna, and superimposed new trauma involving a fracture across the base of the ulnar-styloid process. No carpal fracture found. Dictated by: Long Villarreal M.D. on 10/31/2020 at 12:31 Approved by: Long Villarreal M.D. on 10/31/2020 at 12:33
--- NOTE | 2020-10-31 09:33 | DI.RAD.S_ITS ---
PROCEDURE: XR SHOULDER RT MIN 2V INDICATIONS: s/p FOOSH on r arm yesterday, pain and limited ROM TECHNIQUE: 3 views of the shoulder were acquired. COMPARISON: None. FINDINGS: Bones: Postsurgical changes are noted in proximal humeral shaft/surgical neck with metallic staple in place. No gross hardware loosening or failure. Moderate acromioclavicular joint and glenohumeral joint osteoarthritic changes are seen. No acute fractures or dislocations. No suspicious bony lesions. Visualized ribs appear intact. Soft tissues: No suspicious soft tissue calcifications. IMPRESSION: No acute shoulder fracture or dislocation. Moderate shoulder joint osteoarthritis. No gross hardware complication. Dictated by: Johnny Junior M.D. on 10/31/2020 at 8:55 Approved by: Johnny Junior M.D. on 10/31/2020 at 8:56
--- NOTE | 2020-10-31 09:33 | DI.RAD.S_ITS ---
PROCEDURE: XR FOREARM RT 2V INDICATIONS: s/p FOOSH on r arm yesterday, pain and limited ROM TECHNIQUE: 2 views of the forearm were acquired. COMPARISON: None. FINDINGS: Bones: No acute fractures or dislocations. No suspicious bony lesions. Osteoarthritic changes are noted in right elbow and right wrist. Soft tissues: Well corticated calcification over dorsal aspect of right wrist are seen, likely represent old healed injury. IMPRESSION: Osteoarthritic changes in right elbow and right wrist joints with suggestion of old healed injury involving dorsal aspect of right wrist. No acute forearm fracture or dislocation. Dictated by: Johnny Junior M.D. on 10/31/2020 at 8:54 Approved by: Johnny Junior M.D. on 10/31/2020 at 8:55
== END ==
PROVIDERS: Family Provider Family Medicine; PCP Family Medicine; Referring Provider Nurse Practitioner Family; Visit Provider Nurse Practitioner Family
DX: S52.611A Displaced fracture of right ulna styloid process, initial encounter for closed fracture (principal); M79.601 Pain in right arm; M19.011 Primary osteoarthritis, right shoulder; W19.XXXA Unspecified fall, initial encounter
CPT/HCPCS: 73030; 73090; 73110

== ENCOUNTER → 2020-11-14 08:31 | Outpatient (CLI) | payer MEDICARE, SELFPAY ==
[2020-11-14 10:08] LABS: Cholesterol 222 mg/dL (140-199); HDL Cholesterol 67 mg/dL (40-60); LDL Cholesterol Calculated 133 mg/dL (<100); Triglycerides 112 mg/dL (35-150)
[2020-11-14 10:38] LABS: Prostate Specific Antigen Scrn 3.86 ng/mL (0.1-4.0)
== END ==
PROVIDERS: Family Provider Family Medicine; PCP Family Medicine; Referring Provider Family Medicine; Visit Provider Family Medicine
DX: E03.8 Other specified hypothyroidism (principal); Z12.5 Encounter for screening for malignant neoplasm of prostate; E78.2 Mixed hyperlipidemia; I10 Essential (primary) hypertension
CPT/HCPCS: 36415; 80061; G0103

== ENCOUNTER → 2021-01-05 11:17 | Outpatient (CLI) | payer MEDICARE, SELFPAY ==
[2021-01-05 13:07] LABS: COVID19 -Nasal RAPID Negative (Negative)
== END ==
PROVIDERS: Family Provider Family Medicine; PCP Family Medicine; Visit Provider Physician Assistant
DX: Z20.822 Contact with and (suspected) exposure to COVID-19 (principal)
CPT/HCPCS: 87635; C9803

== ENCOUNTER → 2021-02-10 09:44 | Outpatient (CLI) | payer MEDICARE, SELFPAY ==
[2021-02-10 11:47] LABS: Cholesterol 144 mg/dL (140-199); HDL Cholesterol 68 mg/dL (40-60); LDL Cholesterol Calculated 58 mg/dL (<100); Triglycerides 91 mg/dL (35-150)
== END ==
PROVIDERS: Family Provider Family Medicine; PCP Family Medicine; Referring Provider Family Medicine; Visit Provider Family Medicine
DX: I10 Essential (primary) hypertension (principal); E78.2 Mixed hyperlipidemia
CPT/HCPCS: 36415; 80061

== ENCOUNTER → 2021-02-14 12:03 | Outpatient (CLI) | payer MEDICARE, SELFPAY ==
[2021-02-14 13:09] LABS: Hemoglobin A1C% w Est Avg Glu 5.7 % (4.0-6.0)
== END ==
PROVIDERS: Family Provider Family Medicine; PCP Family Medicine; Referring Provider Family Medicine; Visit Provider Family Medicine
DX: G62.9 Polyneuropathy, unspecified (principal); C61 Malignant neoplasm of prostate
CPT/HCPCS: 83036

== ENCOUNTER → 2021-03-17 10:12 | Outpatient (CLI) | payer MEDICARE, SELFPAY ==
[2021-03-17 11:13] LABS: Add Manual Diff / Slide Review NO; Basophils Absolute Auto 100 /uL (0-100); Basophils Percent Auto 0.9 % (0-2); Eosinophils Absolute Auto 200 /uL (0-450); Eosinophils Percent Auto 3.2 % (2-4); Hematocrit 39.8 % (41-53); Lymphocytes Absolute Auto 1700 /uL (1100-4500); Lymphocytes Percent Auto 26.7 % (25-40); Mean Corpuscular HGB Conc 32.6 % (30-36); Mean Corpuscular Hemoglobin 31.7 PG (26-34); Mean Corpuscular Volume 97.3 fL (80-100); Monocytes Absolute Auto 500 /uL (0-900); Monocytes Percent Auto 7.8 % (3-14); Neutrophils Absolute Auto 4000 /uL (1500-7000); Neutrophils Percent Auto 61.4 % (50-75); Platelet Count 234 X10^3/uL (150-400); Red Blood Cell Count 4.09 X10^6/uL (4.5-5.9); Red Cell Distribution Width 14.2 % (11.6-14.8); White Blood Cell Count 6.5 X10^3/uL (4.5-11.0)
[2021-03-17 11:57] LABS: Alanine Aminotransferase 47 IU/L (<50); Albumin Globulin Ratio 1.5 (1.0-2.8); Alkaline Phosphatase 57 U/L (38-126); Aspartate Aminotransferase 48 IU/L (17-59); BUN Creatinine Ratio 27.5 (6-22); Bilirubin Total 0.6 mg/dL (0.2-1.3); Blood Urea Nitrogen 33 mg/dL (9-20); Carbon Dioxide 23 mmol/L (22-32); Chloride 109 mmol/L (98-107); Globulin 2.6 g/dL (1.7-4.1); Glucose 216 mg/dL (80-110); HEMOLYSIS < 15 (0-50); Potassium 4.1 mmol/L (3.4-5.1); Sodium 141 mmol/L (137-145); Total Protein 6.6 g/dL (6.3-8.2)
[2021-03-17 16:10] LABS: Hemoglobin A1C% w Est Avg Glu 5.8 % (4.0-6.0)
[2021-03-17 18:09] LABS: Free T3, Triiodothyronine Free 3.17 pg/mL (2.77-5.27); Free T4, Direct Thyroxine 0.82 ng/dL (0.78-2.19)
[2021-03-18 11:34] LABS: Creatinine Urine Random 127.2 mg/dL
[2021-03-18 11:40] LABS: Microalbumin Urine Random < 0.6 mg/dL (0-1.6)
== END ==
PROVIDERS: Family Provider Family Medicine; PCP Family Medicine; Referring Provider Family Medicine; Visit Provider Family Medicine
DX: E03.8 Other specified hypothyroidism (principal); R73.01 Impaired fasting glucose; E78.2 Mixed hyperlipidemia; G62.9 Polyneuropathy, unspecified; I10 Essential (primary) hypertension; Z68.32 Body mass index [BMI] 32.0-32.9, adult
CPT/HCPCS: 36415; 80053; 82043; 82570; 83036; 84439; 84443; 84481; 85025

== ENCOUNTER → 2021-04-20 14:44 | Outpatient (CLI) | payer MEDICARE, SELFPAY ==
--- NOTE | 2021-04-20 14:46 | DI.US.S_ITS ---
PROCEDURE: US EXTREMITY NONVASC LOWER RT INDICATIONS: HIP HEMATOMA TECHNIQUE: Real-time scanning was performed of the right lateral hip, with image documentation. COMPARISON: None. FINDINGS: Focused ultrasound examination in right lateral hip shows subcutaneous soft tissue swelling and edema. No discrete fluid collection is seen. IMPRESSION: Mild right lateral hip soft tissue swelling and edema. No discrete drainable fluid collection is identified. Dictated by: Johnny Junior M.D. on 04/21/2021 at 8:59 Approved by: Johnny Junior M.D. on 04/21/2021 at 9:00
== END ==
PROVIDERS: Family Provider Family Medicine; PCP Family Medicine; Referring Provider Physician Assistant; Visit Provider Physician Assistant
DX: S70.01XA Contusion of right hip, initial encounter (principal); M25.451 Effusion, right hip; X58.XXXA Exposure to other specified factors, initial encounter
CPT/HCPCS: 76882

== ENCOUNTER → 2021-05-01 16:12 | Outpatient (CLI) | payer MEDICARE, SELFPAY ==
[2021-05-01 17:53] LABS: Folate > 20.0 ng/mL (2.76-20.0); Vitamin B12 534 pg/mL (239-931)
[2021-05-04 14:08] LABS: Albumin 4.2 g/dL (2.9-4.4); Alpha-1-Globulin 0.2 g/dL (0.0-0.4); Alpha-2-Globulin 0.7 g/dL (0.4-1.0); Gamma Globulin 0.8 g/dL (0.4-1.8); Globulin Total 2.6 g/dL (2.2-3.9); Protein, Total 6.8 g/dL (6.0-8.5)
== END ==
PROVIDERS: Family Provider Family Medicine; PCP Family Medicine; Referring Provider Psychiatry & Neurology Neurology; Visit Provider Psychiatry & Neurology Neurology
DX: G62.9 Polyneuropathy, unspecified (principal); R20.2 Paresthesia of skin
CPT/HCPCS: 36415; 82607; 82746; 84155; 84165

== ENCOUNTER → 2021-08-27 08:02 | Outpatient (CLI) | payer MEDICARE, SELFPAY ==
[2021-09-09 09:36] LABS: Aldosterone/Renin Activity Rat 2.1 (0.0-30.0); Plama Renin, LC/MS/MS 3.388 ng/mL/hr (0.167-5.380)
== END ==
PROVIDERS: Family Provider Family Medicine; PCP Family Medicine; Referring Provider Family Medicine; Visit Provider Family Medicine
DX: I10 Essential (primary) hypertension (principal)
CPT/HCPCS: 36415; 82088; 84244

== ENCOUNTER → 2021-09-14 13:21 | Outpatient (CLI) | payer MEDICARE, SELFPAY ==
[2021-09-14 15:43] LABS: COVID19 -Nasal RAPID Negative (Negative)
== END ==
PROVIDERS: Family Provider Family Medicine; PCP Family Medicine; Visit Provider Physician Assistant
DX: Z20.822 Contact with and (suspected) exposure to COVID-19 (principal); R09.89 Other specified symptoms and signs involving the circulatory and respiratory systems; J02.9 Acute pharyngitis, unspecified
CPT/HCPCS: 87635

== ENCOUNTER → 2021-12-07 11:16 | Outpatient (CLI) | payer MEDICARE, SELFPAY ==
--- NOTE | 2021-12-07 11:17 | DI.RAD.S_ITS ---
PROCEDURE: XR HUMERUS LT 2V INDICATIONS: injury TECHNIQUE: 2 views of the humerus were acquired. COMPARISON: None. FINDINGS: Bones: No acute fractures or dislocations. No suspicious bony lesions. Postsurgical widening of the acromioclavicular joint is seen. A small ossification adjacent to the lateral epicondyle is included at the margins of the field of view of this exam. Soft tissues: No suspicious soft tissue calcifications. IMPRESSION: No acute osseous abnormality. If clinical suspicion and/or symptoms persist, additional imaging with repeat plain films, or advanced imaging (e.g. CT, MRI) may be helpful for further assessment. Dictated by: Edwar Chaudhary M.D. on 12/07/2021 at 12:06 Approved by: Edwar Chaudhary M.D. on 12/07/2021 at 12:10
--- NOTE | 2021-12-07 11:17 | DI.RAD.S_ITS ---
PROCEDURE: XR ELBOW LT MIN 3V INDICATIONS: injury TECHNIQUE: Three views of the elbow were acquired. COMPARISON: None. FINDINGS: Bones: No acute fractures or dislocations. No suspicious bony lesions. Soft tissues: No elbow joint effusion. Small ossification adjacent to the lateral epicondyle may be the sequela of prior trauma or calcific tendinopathy. Enthesophytes are seen at the radial tuberosity and the posterior olecranon. IMPRESSION: No acute osseous abnormality. If clinical suspicion and/or symptoms persist, additional imaging with repeat plain films, or advanced imaging (e.g. CT, MRI) may be helpful for further assessment. Dictated by: Edwar Chaudhary M.D. on 12/07/2021 at 12:11 Approved by: Edwar Chaudhary M.D. on 12/07/2021 at 12:11
--- NOTE | 2021-12-07 11:17 | DI.RAD.S_ITS ---
PROCEDURE: XR FOREARM LT 2V INDICATIONS: injury TECHNIQUE: 2 views of the forearm were acquired. COMPARISON: None. FINDINGS: Bones: No acute fractures or dislocations. No suspicious bony lesions. Degenerative changes are seen in the included wrist. Enthesopathy is noted in the elbow. Soft tissues: No suspicious soft tissue calcifications or masses. IMPRESSION: No acute osseous abnormality. If clinical suspicion and/or symptoms persist, additional imaging with repeat plain films, or advanced imaging (e.g. CT, MRI) may be helpful for further assessment. Dictated by: Edwar Chaudhary M.D. on 12/07/2021 at 12:11 Approved by: Edwar Chaudhary M.D. on 12/07/2021 at 12:13
== END ==
PROVIDERS: Family Provider Family Medicine; PCP Family Medicine; Referring Provider Student in an Organized Health Care Education/Training Program; Visit Provider Student in an Organized Health Care Education/Training Program
DX: M25.522 Pain in left elbow (principal); T14.90XA Injury, unspecified, initial encounter; X58.XXXA Exposure to other specified factors, initial encounter
CPT/HCPCS: 73060; 73080; 73090

== ENCOUNTER → 2022-02-24 07:28 | Outpatient (CLI) | payer MEDICARE, SELFPAY ==
[2022-02-24 08:25] LABS: Add Manual Diff / Slide Review NO; Basophils Absolute Auto 300 /uL (0-100); Basophils Percent Auto 4.5 % (0-2); Eosinophils Absolute Auto 200 /uL (0-450); Eosinophils Percent Auto 3.2 % (2-4); Hematocrit 38.3 % (41-53); Hemoglobin 13.1 g/dL (13.5-17.5); Lymphocytes Absolute Auto 1700 /uL (1100-4500); Lymphocytes Percent Auto 22.3 % (25-40); Mean Corpuscular HGB Conc 34.3 % (30-36); Mean Corpuscular Hemoglobin 32.6 PG (26-34); Monocytes Absolute Auto 600 /uL (0-900); Monocytes Percent Auto 7.7 % (3-14); Neutrophils Absolute Auto 4600 /uL (1500-7000); Neutrophils Percent Auto 62.3 % (50-75); Platelet Count 253 X10^3/uL (150-400); Red Blood Cell Count 4.03 X10^6/uL (4.5-5.9); Red Cell Distribution Width 14.5 % (11.6-14.8); White Blood Cell Count 7.4 X10^3/uL (4.5-11.0)
[2022-02-24 08:42] LABS: Alanine Aminotransferase 80 IU/L (<50); Albumin 4.2 g/dL (3.5-5.0); Albumin Globulin Ratio 1.6 (1.0-2.8); Alkaline Phosphatase 64 U/L (38-126); Aspartate Aminotransferase 69 IU/L (17-59); BUN Creatinine Ratio 24.6 (6-22); Bilirubin Total 0.4 mg/dL (0.2-1.3); Blood Urea Nitrogen 28 mg/dL (9-20); Calcium 8.9 mg/dL (8.4-10.2); Carbon Dioxide 25 mmol/L (22-32); Chloride 108 mmol/L (98-107); Cholesterol 145 mg/dL (140-199); Estimated Glomerular Filt Rate > 60 mL/min (>60); Globulin 2.7 g/dL (1.7-4.1); Glucose 105 mg/dL (80-110); HDL Cholesterol 82 mg/dL (40-60); HEMOLYSIS < 15 (0-50); LDL Cholesterol Calculated 31 mg/dL (<100); Potassium 4.4 mmol/L (3.4-5.1); Sodium 141 mmol/L (137-145); Total Protein 6.9 g/dL (6.3-8.2); Triglycerides 161 mg/dL (35-150)
[2022-02-24 08:53] LABS: Free T4, Direct Thyroxine 0.97 ng/dL (0.78-2.19)
[2022-02-24 09:06] LABS: Thyroid Stimulating Hormone 6.16 uIU/mL (0.47-4.68)
[2022-02-24 09:22] LABS: Vitamin B12 704 pg/mL (239-931)
[2022-02-24 09:30] LABS: Free T3, Triiodothyronine Free 4.04 pg/mL (2.77-5.27)
== END ==
PROVIDERS: Family Provider Family Medicine; PCP Family Medicine; Referring Provider Family Medicine; Visit Provider Family Medicine
DX: E03.8 Other specified hypothyroidism (principal); E78.2 Mixed hyperlipidemia; G62.9 Polyneuropathy, unspecified; R73.01 Impaired fasting glucose
CPT/HCPCS: 36415; 80053; 80061; 82607; 84439; 84443; 84481; 85025

== ENCOUNTER → 2022-02-26 08:04 | Outpatient (CLI) | payer MEDICARE, SELFPAY ==
[2022-02-26 09:38] LABS: Cholesterol 145 mg/dL (140-199); HDL Cholesterol 75 mg/dL (40-60); LDL Cholesterol Calculated 38 mg/dL (<100); Triglycerides 159 mg/dL (35-150)
== END ==
PROVIDERS: Family Provider Family Medicine; PCP Family Medicine; Referring Provider Family Medicine; Visit Provider Family Medicine
DX: E78.2 Mixed hyperlipidemia (principal)
CPT/HCPCS: 36415; 80061

== ENCOUNTER → 2022-04-12 09:06 | Outpatient (CLI) | payer MEDICARE, SELFPAY ==
[2022-04-12 10:58] LABS: Cholesterol 155 mg/dL (140-199); HDL Cholesterol 72 mg/dL (40-60); LDL Cholesterol Calculated 70 mg/dL (<100); Triglycerides 63 mg/dL (35-150)
== END ==
PROVIDERS: Family Provider Family Medicine; PCP Family Medicine; Referring Provider Family Medicine; Visit Provider Family Medicine
DX: I10 Essential (primary) hypertension (principal)
CPT/HCPCS: 36415; 80061

== ENCOUNTER → 2022-06-08 16:17 | Outpatient (CLI) | payer MEDICARE, SELFPAY ==
--- NOTE | 2022-06-08 16:21 | DI.MRI.S_ITS ---
PROCEDURE: MR SHOULDER RT WO CON INDICATIONS: pain in rt shoulder TECHNIQUE: Noncontrast oblique coronal T2 fast spin echo with fat saturation, oblique sagittal T1 spin echo and T2 fast spin echo with fat saturation, axial T1 spin echo and T2 fast spin echo with fat saturation through the shoulder. COMPARISON: None. FINDINGS: Image quality: Excellent. Rotator cuff: There is full-thickness rupture involving mid to posterior fibers of distal supraspinatus at its insertion on the humeral head with up to 3 cm medial retraction of torn tendon fibers to the level of acromioclavicular joint. Fluid-filled gap measures 2.6 cm in largest AP dimension. Tendinosis and low to moderate grade articular surface partial-thickness tear involving distal infraspinatus at its insertion on the humeral head is seen extending to musculotendinous junction. Distal subscapularis tendinosis and low to moderate grade intrasubstance partial-thickness tear is seen. Sagittal images demonstrate moderate supraspinatus and mild subscapularis muscle atrophy. Bones and bursae: Susceptibility artifacts are noted involving anterior aspect of proximal humeral shaft. No bone marrow contusions or fractures. Moderate acromioclavicular joint osteoarthritic changes are seen with joint space narrowing and downward osteophyte formation depressing the musculotendinous junction of supraspinatus. Moderate to large subacromial subdeltoid bursal fluid is seen, no definite intra-articular loose bodies. Capsule and soft tissues: There is subtle signal abnormality and contour irregularity involving superior anterior labrum at 12 to 2 o'clock position suggestive of superior anterior labral tear. The long head of the biceps tendon is not seen intra-articularly most likely represent prior tenodesis. The rotator interval appears normal, without fibrosis. The coracohumeral ligament is normal in thickness. IMPRESSION: 1. Full-thickness rupture involving mid to posterior fibers of distal supraspinatus with up to 3 cm medial retraction of torn tendon fibers to the level of acromioclavicular joint. Fluid-filled gap measures 2.6 cm in largest AP dimension. Tendinosis and low to moderate grade articular surface partial-thickness tear involving distal infraspinatus extending to musculotendinous junction. Moderate intrasubstance partial-thickness tear involving distal subscapularis. Moderate supraspinatus muscle atrophy and mild subscapularis muscle atrophy. 2. Moderate to large joint effusion and subacromial subdeltoid bursal fluid. No gross loose bodies. 3. Moderate acromioclavicular joint osteoarthritis and bphi-fo-rfermjfr glenohumeral joint osteoarthritis. Postsurgical changes involving proximal humeral shaft. No fracture or dislocation. 4. Suggestion of subtle superior anterior labral tear at 12 to 2 o'clock position. 5. Nonvisualization of proximal intra-articular portion of long head of biceps tendon likely represent prior tenodesis suggest clinical correlation. Dictated by: Johnny Junior M.D. on 06/09/2022 at 9:52 Approved by: Johnny Junior M.D. on 06/09/2022 at 10:07
== END ==
PROVIDERS: Family Provider Family Medicine; PCP Family Medicine; Referring Provider Orthopaedic Surgery; Visit Provider Orthopaedic Surgery
DX: M25.511 Pain in right shoulder (principal); M75.121 Complete rotator cuff tear or rupture of right shoulder, not specified as traumatic; M75.41 Impingement syndrome of right shoulder; M25.411 Effusion, right shoulder; M19.011 Primary osteoarthritis, right shoulder
CPT/HCPCS: 73221

== ENCOUNTER → 2022-10-18 06:58 | Outpatient (CLI) | payer MEDICARE, SELFPAY ==
[2022-10-18 08:29] LABS: Add Manual Diff / Slide Review NO; Basophils Absolute Auto 100 /uL (0-100); Eosinophils Absolute Auto 100 /uL (0-450); Eosinophils Percent Auto 2.4 % (2-4); Hematocrit 39.2 % (41-53); Hemoglobin 13.3 g/dL (13.5-17.5); Hemoglobin A1C% w Est Avg Glu 5.9 % (4.0-6.0); Lymphocytes Absolute Auto 1800 /uL (1100-4500); Lymphocytes Percent Auto 30.2 % (25-40); Mean Corpuscular HGB Conc 33.9 % (30-36); Mean Corpuscular Hemoglobin 32.1 PG (26-34); Mean Corpuscular Volume 94.6 fL (80-100); Monocytes Absolute Auto 500 /uL (0-900); Monocytes Percent Auto 8.3 % (3-14); Neutrophils Absolute Auto 3500 /uL (1500-7000); Neutrophils Percent Auto 58.1 % (50-75); Platelet Count 248 X10^3/uL (150-400); Red Blood Cell Count 4.14 X10^6/uL (4.5-5.9); Red Cell Distribution Width 14.1 % (11.6-14.8)
[2022-10-18 08:52] LABS: Alanine Aminotransferase 64 IU/L (<50); Albumin 4.4 g/dL (3.5-5.0); Albumin Globulin Ratio 1.5 (1.0-2.8); Alkaline Phosphatase 59 U/L (38-126); Aspartate Aminotransferase 57 IU/L (17-59); BUN Creatinine Ratio 31.5 (6-22); Bilirubin Total 0.5 mg/dL (0.2-1.3); Blood Urea Nitrogen 35 mg/dL (9-20); Carbon Dioxide 26 mmol/L (22-32); Chloride 105 mmol/L (98-107); Cholesterol 154 mg/dL (140-199); Estimated Glomerular Filt Rate > 60 mL/min (>60); Glucose 96 mg/dL (80-110); HDL Cholesterol 62 mg/dL (40-60); HEMOLYSIS < 15 (0-50); LDL Cholesterol Calculated 44 mg/dL (<100); Potassium 4.1 mmol/L (3.4-5.1); Sodium 141 mmol/L (137-145); Total Protein 7.4 g/dL (6.3-8.2); Triglycerides 241 mg/dL (35-150)
[2022-10-18 09:21] LABS: Prostate Specific Antigen Scrn 3.68 ng/mL (0.1-4.0)
[2022-10-18 09:24] LABS: TSH w/ Reflex to FT4 2.73 uIU/mL (0.47-4.68)
== END ==
PROVIDERS: Family Provider Family Medicine; PCP Family Medicine; Referring Provider Family Medicine; Visit Provider Family Medicine
DX: I10 Essential (primary) hypertension (principal); Z12.5 Encounter for screening for malignant neoplasm of prostate; E03.8 Other specified hypothyroidism; E78.2 Mixed hyperlipidemia; R73.01 Impaired fasting glucose; R74.01 Elevation of levels of liver transaminase levels; Z68.32 Body mass index [BMI] 32.0-32.9, adult
CPT/HCPCS: 36415; 80053; 80061; 83036; 84443; 85025; G0103

== ENCOUNTER 2023-08-22 06:50 | Day surgery (SDC) | payer MEDICARE, SELFPAY ==
--- NOTE | 2023-08-22 | PATH_ITS ---
[facility] Accession Number: [id number] No. of containers..06 Tissue . 01 Material submitted: . PART A: duodenum - DUODENUM BIOPSY PART B: stomach - ANTRUM BIOPSY PART C: stomach - GASTRIC BODY BIOPSY PART D: colon - TRANSVERSE COLON POLYP PART E: cecum - CECUM POLYPS PART F: colon - RANDOM BIOPSIES . 01 Diagnosis: A. Duodenum, Biopsy: Duodenal mucosa with no diagnostic abnormality. Negative for active inflammation, features of sprue, dysplasia, or malignancy. . B. Antrum Biopsy: Gastric mucosa with mild chronic inflammation. No Helicobacter pylori organisms identified on immunohistochemical evaluation. No intestinal metaplasia, dysplasia or malignancy. . C. Gastric Body Biopsy: Gastric mucosa with minimal chronic nonspecific inflammation. No Helicobacter pylori organisms identified on immunohistochemical evaluation. No intestinal metaplasia, dysplasia or malignancy. . D. Transverse Colon Polyp: Tubular adenoma. . E. Cecum Polyps: Sessile serrated adenoma(s). Tubular adenomas. . F. Random Biopsies: Colonic mucosa with no significant diagnostic abnormality. Negative for active inflammation, granulomas, dysplasia, and malignancy. [facility] 09/05/2023 1231 Local . 01 Electronically signed: . Irish Boland MD, Pathologist NPI- [id number] . 01 Gross description: . Part A: DUODENUM BIOPSY: Received in formalin is 3 fragment(s) of johnson, soft tissue measuring 0.4 x 0.3 x 0.2 cm to 0.3 x 0.2 x 0.1 cm submitted entirely in 1 cassette(s) Part B: ANTRUM BIOPSY: Received in formalin is 2 fragment(s) of johnson, soft tissue measuring 0.2 x 0.2 x 0.1 cm to 0.2 x 0.1 x 0.1 cm submitted entirely in 1 cassette(s) Part C: GASTRIC BODY BIOPSY: Received in formalin is 2 fragment(s) of johnson, soft tissue measuring 0.4 x 0.3 x 0.1 cm to 0.3 x 0.3 x 0.2 cm submitted entirely in 1 cassette(s) Part D: TRANSVERSE COLON POLYP: Received in formalin is 2 fragment(s) of johnson, soft tissue measuring 0.4 x 0.3 x 0.1 cm to 0.3 x 0.3 x 0.2 cm submitted entirely in 1 cassette(s) Part E: CECUM POLYPS: Received in formalin is multiple fragment(s) of johnson, soft tissue measuring 1.5 x 1.0 x 0.4 cm in aggregate submitted entirely in 1 cassette(s) Part F: RANDOM BIOPSIES: Received in formalin is 1 fragment(s) of johnson, soft tissue measuring 0.3 x 0.2 x 0.1 cm submitted entirely in 1 cassette(s) /AA 08/23/2023 0537 Local . 01 Microscopic: . B. An immunohistochemical stain was performed to evaluate for Helicobacter organisms and is negative. The control stain showed appropriate reactivity. . C. An immunohistochemical stain was performed to evaluate for Helicobacter organisms and is negative. The control stain showed appropriate reactivity. . * This test was developed and its performance characteristics determined by [employer]. It has not been cleared or approved by the U.S. Food and Drug Administration. The FDA has determined that such clearance or approval is not necessary. This test is used for clinical purposes. It should not be regarded as investigational or for research. . 01 Pathologist provided ICD-10: K29.70, D12.3, D12.0 . 01 CPT . 525248, 351613, 964783, 106508, 527890, 646761, G54236 Specimen Comment: A courtesy copy of this report has been sent to [phone] Performed at: 01 [facility] [address] [place] [address] [address], [place], [place] [id number] MD Melvin Oleary MD Phone: [phone]
[2023-08-22] MEDS: LACTATED RINGERS 1,000 ML 42 ML IV (07:14)
[2023-08-22 07:22] VITALS: BP 161/85; PULSE 79; RESP 18; TEMP 36.1; O2SAT 96; BMI 31.6
--- NOTE | 2023-08-22 07:58 | PM.HP.1 ---
History of Present Illness History of Present Illness Date Patient Seen: 08/22/23 Time Patient Seen: 07:59 Chief complaint: EGD/Colonoscopy Narrative: I reviewed the note by Mark Fletcher. No significant changes. Patient has been having symptoms of refractory reflux. He has a known hiatal hernia. He has low volume fecal incontinence when passing urine. He is not tried the fiber that was recommended. [facility] Medical History Fecal soiling due to fecal incontinence Acute bacterial sinusitis Elevated ALT measurement Chronic left-sided lumbar radiculopathy Lumbar radiculopathy, acute Transaminitis Normocytic anemia, not due to blood loss Low level of low-density lipoprotein (LDL) Bilateral lower extremity edema White coat syndrome with hypertension Resistant hypertension Allergic rhinitis Infected abrasion Hematoma and contusion Fasting hyperglycemia Peripheral neuropathy Obesity (BMI 30-39.9) Ankle swelling BRBPR (bright red blood per rectum) Alcohol abuse Hiatal hernia Back pain Obstructive sleep apnea URI (upper respiratory infection) Essential hypertension (04/26/17) Body mass index (BMI) of 32.0 to 32.9 in adult (01/03/17) Hypothyroidism (11/20/15) Depression (11/20/15) Mixed hyperlipidemia (11/20/15) Surgical History Hx of cholecystectomy History of knee surgery History of arthroscopic surgery of shoulder History of total right hip arthroplasty Social History household members: none Smoking Status: Never smoker alcohol intake: current substance use type: does not use Meds Home Medications and Allergies Home Medications Medication Instructions Recorded Confirmed Type albuterol sulfate 90 mcg/actuation 2 puff inhalation Q6H PRN 10/23/19 08/22/23 Rx aerosol inhaler shortness of breath or wheezing #8.5 grams tramadol 50 mg tablet 50 mg PO BEDTIME PRN pain #7 tabs 10/31/20 08/22/23 Rx aspirin 81 mg tablet,delayed 81 mg PO DAILY 04/13/22 08/22/23 History release multivitamin 1 tab PO DAILY 04/13/22 08/22/23 History atorvastatin 20 mg tablet See Rx Instructions .Route 10/27/22 08/22/23 Rx .COMPLEX #90 tabs omeprazole 20 mg capsule,delayed 20 mg PO DAILY #90 caps 02/18/23 08/22/23 Rx release hydrochlorothiazide 25 mg tablet 25 mg PO QAM #90 tabs 03/11/23 08/22/23 Rx diltiazem HCl 60 mg tablet See Rx Instructions .Route 04/12/23 08/22/23 Rx .COMPLEX #180 tabs losartan 50 mg tablet See Rx Instructions .Route 05/05/23 08/22/23 Rx .COMPLEX #180 tabs furosemide 20 mg tablet 10 mg (1/2 x 20 mg) PO QAM #90 tabs 05/23/23 08/22/23 Rx citalopram 20 mg tablet 20 mg PO DAILY #90 tabs 06/06/23 08/22/23 Rx Allergies Allergy/AdvReac Type Severity Reaction Status Date / Time cefazolin [CEFAZOLIN] Allergy Mild Verified 08/22/23 07:18 cetirizine [CETIRIZINE] Allergy Mild Rash Verified 08/22/23 07:18 hydroxyzine [HYDROXYZINE] Allergy Mild Rash Verified 08/22/23 07:18 oxycodone [OXYCODONE] Allergy Mild RASH Verified 08/22/23 07:18 Review of Systems Review of Systems ROS: Yes All systems reviewed with the patient and are negative except as otherwise documented Exam Vital Signs (past 8 hours): - 08/22/23 07:22 Temperature 97.0 F L Pulse Rate 79 Respiratory Rate 18 Blood Pressure 161/85 H Pulse Oximetry 96 Oxygen Delivery Method Room Air Oxygen Delivery Method Room Air Const General: cooperative HENMT Head: normal to inspection Eyes General: appearance normal, both eyes and all related structures Neck Neck: normal visual inspection Chest Chest: normal inspection of the chest Resp Effort & Inspection: normal respiratory effort Cardio Rate: regular rate GI Inspection: normal to inspection Skin General: no rashes or lesions noted Neuro General: patient alert and patient awake Extrem General: normal to inspection and no pedal edema Psych Appearance: grossly normal Assessment & Plan Assessment & Plan narrative: 78-year-old male with refractory reflux, history of colon polyps, loose stools, intermittent fecal incontinence. EGD and colonoscopy are pursued today.
--- NOTE | 2023-08-22 08:00 | PM.PREOP ---
Pre-operative Note Interval Note History & Physical reviewed/Exam performed by Physician: Yes Changes to H&P: No ASA Class (for procedural sedation): III
--- NOTE | 2023-08-22 08:57 | P.OP.EGD&C_ITS ---
Operative Date/Time/Diagnoses Date of procedure: 08/22/23 Time of procedure: 08:58 Pre-op diagnosis: Refractory reflux, diarrhea, fecal incontinence Post-op diagnosis: same Procedure & Clinicians Study performed: EGD with biopsies and colonoscopy with hot snare polypectomy and biopsies Same procedure as scheduled: Yes Indications: Refractory reflux, diarrhea, fecal incontinence Surgeon: George Valderrama Procedure Notes SCOAP/Timeout: Done Procedure in detail: After the risks and benefits were explained, written and verbal informed consent was obtained. The patient was brought into the procedure room and placed into the left lateral decubitus position. Please see anesthesia notes for sedation details. The scope was introduced into the mouth through the bite block and advanced under direct visualization to the 2nd portion of the duodenum. The scope was slowly withdrawn carefully examining the mucosa for any defects or lesions. Retroflexed views were accomplished in the stomach. The stomach was decompressed, the scope was then removed from the patient who tolerated the procedure well. The patient was then turned around. A digital rectal examination was accomplished. Moderate internal hemorrhoids were noted. The scope was introduced into the rectum and advanced to the cecum as identified by the appendiceal orifice and ileocecal valve. The scope was slowly withdrawn to carefully examine the mucosa for any defects or lesions. Multiple direct views were made through the dentate line for exclusion of pathology. The colon was decompressed. The scope was then removed from the patient who tolerated the procedure well. Adult colonoscope bowel prep fair Scope withdrawal time: 20 minutes Sedation minutes: 50 Complications: none Impression: 1. Duodenum: No pathology identified from the bulb through to the 2nd portion. Random D2 biopsies were taken for exclusion of sprue. 2. Stomach: Patient had a streaky erythema in the antrum. Biopsies were taken for exclusion of Helicobacter. The gastric body demonstrated moderately exaggerated folds and multiple biopsies were taken from this region and submitted separately. Otherwise retroflexed views of the LES were fairly unremarkable. 3. Esophagus: The squamocolumnar junction correlated with the top of the gastri c folds. GEJ was at about 38 cm from the incisors. No acute erosive changes no strictures no mass lesions. There was only a very subtle sliding hiatal hernia. The remainder of the esophagus was unremarkable. 4. Colon: Patient had some diverticulosis in the left colon. Grade 2 nonbleeding nonthrombosed hemorrhoids were noted. Patient had a lengthy redundant colon and navigation to cecum was challenging requiring abdominal pressure. There was a polyp in what was thought to be distal transverse versus proximal descending removed with hot snare. This was sessile and perhaps 7 mm in greatest dimension. In the cecum there was a 9 mm sessile polyp adjacent to the appendiceal orifice removed with hot snare. There was a smaller 7 mm sessile polyp also in the cecum removed with hot snare. A swapped out the 10 mm snare for the 24 mm snare and we removed a 3rd polyp which was perhaps 14 mm in greatest dimension and sessile. All 3 of these polyps were submitted together. Random colon biopsies were taken for exclusion of microscopic colitis. On digital rectal examination resting tone was deemed to be acceptable. Endoscopic diagnosis 1. Gastropathy 2. Subtle small sliding hiatal hernia 3. Multiple colon polyps 4. Diverticulosis 5. Grade 2 hemorrhoids 6. Redundant colon Post-procedure Plan for aftercare: 1. Await histology. 2. Continue anti-reflux. 3. Initiate daily evom-vze-ilwlevz fiber supplementation as previously discussed in clinic. 4. Repeat colonoscopy with extended prep in the next 6 months considering the multiple polyps and only fair prep. It is it is very likely we have missed some other smaller polyps during today's exam. Disposition: PACU
[2023-08-22 09:01] VITALS: BP 127/76; PULSE 58; RESP 16; TEMP 36.7; O2SAT 96
[2023-08-22 09:06] VITALS: BP 156/84; PULSE 57; RESP 14; O2SAT 98
[2023-08-22 09:11] VITALS: BP 163/83; PULSE 57; RESP 14; TEMP 36.7; O2SAT 98
== END 2023-08-22 09:34 | disposition home or self-care (01) ==
PROVIDERS: Family Provider Family Medicine; PCP Family Medicine; Referring Provider Internal Medicine Gastroenterology; Visit Provider Internal Medicine Gastroenterology
PROC: 0DJ08ZZ Inspection of Upper Intestinal Tract, Via Natural or Artificial Opening Endoscopic (ICD-10-PCS; CPT 43235; principal; 2023-08-22 08:00)
PROC: 0DJD8ZZ Inspection of Lower Intestinal Tract, Via Natural or Artificial Opening Endoscopic (ICD-10-PCS; CPT 45378; 2023-08-22 08:00)
DX: R15.9 Full incontinence of feces (principal); R19.7 Diarrhea, unspecified; K21.9 Gastro-esophageal reflux disease without esophagitis; K44.9 Diaphragmatic hernia without obstruction or gangrene; K31.9 Disease of stomach and duodenum, unspecified; K57.30 Diverticulosis of large intestine without perforation or abscess without bleeding; K64.1 Second degree hemorrhoids; K29.50 Unspecified chronic gastritis without bleeding; D12.3 Benign neoplasm of transverse colon; D12.0 Benign neoplasm of cecum
CPT/HCPCS: 45385; 43239; J2704

== ENCOUNTER → 2023-12-07 10:16 | Outpatient (CLI) | payer MEDICARE, SELFPAY ==
--- NOTE | 2023-12-07 10:19 | DI.RAD.S_ITS ---
PROCEDURE: XR CHEST 2V INDICATIONS: cough TECHNIQUE: 2 views of the chest were acquired. COMPARISON: [facility], , XR CHEST 1V, 05/22/2020, 14:30. FINDINGS: Surgical changes and devices: None. Lungs and pleura: Lungs are clear. No pleural effusions or pneumothorax. Mediastinum: Mediastinal contours are normal. Heart size is normal. Bones and chest wall: No suspicious bony abnormalities. Soft tissues appear unremarkable. Degenerative changes of the spine. IMPRESSION: No acute cardiopulmonary process. Dictated by: Parminder Crenshaw M.D. on 12/07/2023 at 17:26 Approved by: Parminder Crenshaw M.D. on 12/07/2023 at 17:26
== END ==
PROVIDERS: Family Provider Family Medicine; PCP Family Medicine; Referring Provider Nurse Practitioner Family; Visit Provider Nurse Practitioner Family
DX: R05.1 Acute cough (principal)
CPT/HCPCS: 71046

== ENCOUNTER → 2024-05-11 09:44 | Outpatient (CLI) | payer MEDICARE, SELFPAY ==
[2024-05-11 10:27] LABS: Add Manual Diff / Slide Review NO; Basophils Absolute Auto 100 /uL (0-100); Basophils Percent Auto 0.9 % (0-2); Eosinophils Absolute Auto 300 /uL (0-450); Eosinophils Percent Auto 3.9 % (2-4); Hematocrit 37.8 % (41-53); Hemoglobin 12.3 g/dL (13.5-17.5); Lymphocytes Absolute Auto 2300 /uL (1100-4500); Lymphocytes Percent Auto 30.1 % (25-40); Mean Corpuscular HGB Conc 32.6 % (30-36); Mean Corpuscular Hemoglobin 30.2 PG (26-34); Mean Corpuscular Volume 92.7 fL (80-100); Monocytes Absolute Auto 700 /uL (0-900); Monocytes Percent Auto 9.4 % (3-14); Neutrophils Absolute Auto 4300 /uL (1500-7000); Neutrophils Percent Auto 55.7 % (50-75); Platelet Count 248 X10^3/uL (150-400); Red Blood Cell Count 4.08 X10^6/uL (4.5-5.9); Red Cell Distribution Width 16.6 % (11.6-14.8); White Blood Cell Count 7.6 X10^3/uL (4.5-11.0)
[2024-05-11 10:53] LABS: Alanine Aminotransferase 46 IU/L (<50); Albumin 4.2 g/dL (3.5-5.0); Albumin Globulin Ratio 1.6 (1.0-2.8); Alkaline Phosphatase 104 U/L (38-126); Aspartate Aminotransferase 62 IU/L (17-59); BUN Creatinine Ratio 23.2 (6-22); Bilirubin Total 0.8 mg/dL (0.2-1.3); Blood Urea Nitrogen 29 mg/dL (9-20); Calcium 9.4 mg/dL (8.4-10.2); Carbon Dioxide 24 mmol/L (22-32); Chloride 108 mmol/L (98-107); Cholesterol 143 mg/dL (140-199); Estimated Glomerular Filt Rate 59 mL/min (>60); Globulin 2.6 g/dL (1.7-4.1); Glucose 121 mg/dL (80-110); HDL Cholesterol 75 mg/dL (40-60); HEMOLYSIS < 15 (0-50); LDL Cholesterol Calculated 44 mg/dL (<100); Potassium 4.6 mmol/L (3.4-5.1); Sodium 141 mmol/L (137-145); Total Protein 6.8 g/dL (6.3-8.2); Triglycerides 121 mg/dL (35-150)
[2024-05-11 11:24] LABS: Prostate Specific Antigen Scrn 3.35 ng/mL (0.1-4.0); TSH w/ Reflex to FT4 5.22 uIU/mL (0.47-4.68)
[2024-05-11 12:30] LABS: Free T4, Direct Thyroxine 0.92 ng/dL (0.78-2.19)
[2024-05-11 12:33] LABS: Hemoglobin A1C% w Est Avg Glu 5.9 % (4.0-6.0)
== END ==
PROVIDERS: Family Provider Family Medicine; PCP Family Medicine; Referring Provider Family Medicine; Visit Provider Family Medicine
DX: E03.8 Other specified hypothyroidism (principal); R73.01 Impaired fasting glucose; Z12.5 Encounter for screening for malignant neoplasm of prostate; E78.2 Mixed hyperlipidemia; M54.9 Dorsalgia, unspecified
CPT/HCPCS: 36415; 80053; 80061; 83036; 84439; 84443; 85025; G0103

== ENCOUNTER → 2024-07-02 09:13 | Outpatient (CLI) | payer MEDICARE, SELFPAY ==
[2024-07-02 11:10] LABS: TSH w/ Reflex to FT4 0.35 uIU/mL (0.47-4.68)
== END ==
PROVIDERS: Family Provider Family Medicine; PCP Family Medicine; Referring Provider Family Medicine; Visit Provider Family Medicine
DX: E03.9 Hypothyroidism, unspecified (principal)
CPT/HCPCS: 36415; 84439; 84443

== ENCOUNTER → 2024-07-16 09:19 | Outpatient (CLI) | payer MEDICARE, SELFPAY | PROVIDERS: Family Provider Family Medicine; PCP Family Medicine; Referring Provider Dermatology MOHS-Micrographic Surgery; Visit Provider Surgery | DX: T81.89XA Other complications of procedures, not elsewhere classified, initial encounter (principal); L98.8 Other specified disorders of the skin and subcutaneous tissue; S31.103A Unspecified open wound of abdominal wall, right lower quadrant without penetration into peritoneal cavity, initial encounter; C43.9 Malignant melanoma of skin, unspecified | CPT/HCPCS: 11042; 87070; 87075; 87205; 99203; 99213 ==

== ENCOUNTER → 2024-07-19 14:24 | Outpatient (CLI) | payer MEDICARE, SELFPAY ==
--- NOTE | 2024-07-19 14:25 | DI.US.S_ITS ---
PROCEDURE: US ABDOMEN LIMITED INDICATIONS: possible right inguinal hernia TECHNIQUE: Real-time focused scanning was performed of the inguinal region, with image documentation. COMPARISON: None. FINDINGS: Along the right inguinal region, there is a 1.4 cm wide reducible fat containing inguinal hernia. Along the left inguinal region, there has been prior mesh repair which limits the available sonographic windows for evaluation. No herniation identified in the field of view. IMPRESSION: Small fat-containing, reducible right inguinal hernia. Dictated by: Jayme Ann M.D. on 07/19/2024 at 16:26 Approved by: Jayme Ann M.D. on 07/19/2024 at 16:28
== END ==
LOC: US 14:25
PROVIDERS: Family Provider Family Medicine; PCP Family Medicine; Referring Provider Family Medicine; Visit Provider Family Medicine
DX: K40.90 Unilateral inguinal hernia, without obstruction or gangrene, not specified as recurrent (principal); R10.31 Right lower quadrant pain
CPT/HCPCS: 76705

== ENCOUNTER → 2024-07-23 10:22 | Outpatient (CLI) | payer MEDICARE, SELFPAY | PROVIDERS: Family Provider Family Medicine; PCP Family Medicine; Referring Provider Dermatology MOHS-Micrographic Surgery; Visit Provider Surgery | DX: T81.89XA Other complications of procedures, not elsewhere classified, initial encounter (principal); S31.103A Unspecified open wound of abdominal wall, right lower quadrant without penetration into peritoneal cavity, initial encounter; L98.8 Other specified disorders of the skin and subcutaneous tissue | CPT/HCPCS: 11042 ==

== ENCOUNTER → 2024-07-25 09:24 | Outpatient (CLI) | payer MEDICARE, SELFPAY | LOC: WC 09:25 | PROVIDERS: Family Provider Family Medicine; PCP Family Medicine; Referring Provider Dermatology MOHS-Micrographic Surgery; Visit Provider Surgery | DX: T81.89XA Other complications of procedures, not elsewhere classified, initial encounter (principal); S31.109A Unspecified open wound of abdominal wall, unspecified quadrant without penetration into peritoneal cavity, initial encounter; L98.8 Other specified disorders of the skin and subcutaneous tissue | CPT/HCPCS: 97605 ==

== ENCOUNTER → 2024-07-27 09:18 | Outpatient (CLI) | payer MEDICARE, SELFPAY | LOC: WC 09:19 | PROVIDERS: Family Provider Family Medicine; PCP Family Medicine; Referring Provider Dermatology MOHS-Micrographic Surgery; Visit Provider Physician Assistant | DX: T81.89XA Other complications of procedures, not elsewhere classified, initial encounter (principal); L98.8 Other specified disorders of the skin and subcutaneous tissue; S31.109A Unspecified open wound of abdominal wall, unspecified quadrant without penetration into peritoneal cavity, initial encounter | CPT/HCPCS: 97605 ==

== ENCOUNTER → 2024-07-31 13:22 | Outpatient (CLI) | payer MEDICARE, SELFPAY | LOC: WC 13:22 | PROVIDERS: Family Provider Family Medicine; PCP Family Medicine; Referring Provider Dermatology MOHS-Micrographic Surgery; Visit Provider Surgery | DX: T81.89XA Other complications of procedures, not elsewhere classified, initial encounter (principal); L98.8 Other specified disorders of the skin and subcutaneous tissue; S31.109A Unspecified open wound of abdominal wall, unspecified quadrant without penetration into peritoneal cavity, initial encounter | CPT/HCPCS: 11042; 97605 ==

== ENCOUNTER → 2024-08-03 13:40 | Outpatient (CLI) | payer MEDICARE, SELFPAY | PROVIDERS: Family Provider Family Medicine; PCP Family Medicine; Referring Provider Dermatology MOHS-Micrographic Surgery; Visit Provider Physician Assistant | DX: S31.105A Unspecified open wound of abdominal wall, periumbilic region without penetration into peritoneal cavity, initial encounter (principal); T81.89XA Other complications of procedures, not elsewhere classified, initial encounter | CPT/HCPCS: 97605 ==

== ENCOUNTER → 2024-08-07 10:52 | Outpatient (CLI) | payer MEDICARE, SELFPAY | PROVIDERS: Family Provider Family Medicine; PCP Family Medicine; Referring Provider Dermatology MOHS-Micrographic Surgery; Visit Provider Surgery | DX: T81.89XA Other complications of procedures, not elsewhere classified, initial encounter (principal); L98.8 Other specified disorders of the skin and subcutaneous tissue; S81.801A Unspecified open wound, right lower leg, initial encounter; S31.109A Unspecified open wound of abdominal wall, unspecified quadrant without penetration into peritoneal cavity, initial encounter; R60.0 Localized edema | CPT/HCPCS: 11042; 97605; 99213 ==

== ENCOUNTER → 2024-08-10 11:07 | Outpatient (CLI) | payer MEDICARE, SELFPAY | PROVIDERS: Family Provider Family Medicine; PCP Family Medicine; Referring Provider Dermatology MOHS-Micrographic Surgery; Visit Provider Physician Assistant | DX: T81.89XA Other complications of procedures, not elsewhere classified, initial encounter (principal); S31.109A Unspecified open wound of abdominal wall, unspecified quadrant without penetration into peritoneal cavity, initial encounter; L98.8 Other specified disorders of the skin and subcutaneous tissue; L97.812 Non-pressure chronic ulcer of other part of right lower leg with fat layer exposed; I87.2 Venous insufficiency (chronic) (peripheral); R60.0 Localized edema | CPT/HCPCS: 97605 ==

== ENCOUNTER → 2024-08-14 10:15 | Outpatient (CLI) | payer MEDICARE, SELFPAY | PROVIDERS: Family Provider Family Medicine; PCP Family Medicine; Referring Provider Family Medicine; Visit Provider Surgery | DX: T81.89XA Other complications of procedures, not elsewhere classified, initial encounter (principal); L98.8 Other specified disorders of the skin and subcutaneous tissue; S31.109A Unspecified open wound of abdominal wall, unspecified quadrant without penetration into peritoneal cavity, initial encounter; S81.801A Unspecified open wound, right lower leg, initial encounter; R60.0 Localized edema | CPT/HCPCS: 11042; 97605; 99213 ==

== ENCOUNTER → 2024-08-17 10:20 | Outpatient (CLI) | payer MEDICARE, SELFPAY | LOC: WC 10:20 | PROVIDERS: Family Provider Family Medicine; PCP Family Medicine; Referring Provider Dermatology MOHS-Micrographic Surgery; Visit Provider Physician Assistant | DX: T81.89XA Other complications of procedures, not elsewhere classified, initial encounter (principal); L98.8 Other specified disorders of the skin and subcutaneous tissue; S31.109A Unspecified open wound of abdominal wall, unspecified quadrant without penetration into peritoneal cavity, initial encounter; S81.801A Unspecified open wound, right lower leg, initial encounter; R60.0 Localized edema | CPT/HCPCS: 97605 ==

== ENCOUNTER → 2024-08-21 10:55 | Outpatient (CLI) | payer MEDICARE, SELFPAY | PROVIDERS: Family Provider Family Medicine; PCP Family Medicine; Referring Provider Dermatology MOHS-Micrographic Surgery; Visit Provider Surgery | DX: T81.89XA Other complications of procedures, not elsewhere classified, initial encounter (principal); L98.8 Other specified disorders of the skin and subcutaneous tissue; S81.801A Unspecified open wound, right lower leg, initial encounter; S31.109A Unspecified open wound of abdominal wall, unspecified quadrant without penetration into peritoneal cavity, initial encounter; C43.9 Malignant melanoma of skin, unspecified; R60.0 Localized edema | CPT/HCPCS: 11042; 97605 ==

== ENCOUNTER → 2024-08-28 10:05 | Outpatient (CLI) | payer MEDICARE, SELFPAY | PROVIDERS: Family Provider Family Medicine; PCP Family Medicine; Referring Provider Dermatology MOHS-Micrographic Surgery; Visit Provider Surgery | DX: T81.89XA Other complications of procedures, not elsewhere classified, initial encounter (principal); L98.8 Other specified disorders of the skin and subcutaneous tissue; S31.109A Unspecified open wound of abdominal wall, unspecified quadrant without penetration into peritoneal cavity, initial encounter; S81.802A Unspecified open wound, left lower leg, initial encounter; R60.0 Localized edema | CPT/HCPCS: 11042 ==

== ENCOUNTER → 2024-08-31 10:03 | Outpatient (CLI) | payer MEDICARE, SELFPAY | PROVIDERS: Family Provider Family Medicine; PCP Family Medicine; Referring Provider Dermatology MOHS-Micrographic Surgery; Visit Provider Physician Assistant | DX: T81.89XA Other complications of procedures, not elsewhere classified, initial encounter (principal); L98.8 Other specified disorders of the skin and subcutaneous tissue; S31.109A Unspecified open wound of abdominal wall, unspecified quadrant without penetration into peritoneal cavity, initial encounter; S71.001A Unspecified open wound, right hip, initial encounter; R60.0 Localized edema | CPT/HCPCS: 99213 ==

== ENCOUNTER → 2024-09-04 10:03 | Outpatient (CLI) | payer MEDICARE, SELFPAY | PROVIDERS: Family Provider Family Medicine; PCP Family Medicine; Referring Provider Dermatology MOHS-Micrographic Surgery; Visit Provider Surgery | DX: T81.89XA Other complications of procedures, not elsewhere classified, initial encounter (principal); L98.8 Other specified disorders of the skin and subcutaneous tissue; S31.109A Unspecified open wound of abdominal wall, unspecified quadrant without penetration into peritoneal cavity, initial encounter | CPT/HCPCS: 11042 ==

== ENCOUNTER → 2024-09-07 10:02 | Outpatient (CLI) | payer MEDICARE, SELFPAY | LOC: WC 10:03 | PROVIDERS: Family Provider Family Medicine; PCP Family Medicine; Referring Provider Dermatology MOHS-Micrographic Surgery; Visit Provider Physician Assistant | DX: T81.89XA Other complications of procedures, not elsewhere classified, initial encounter (principal); L98.8 Other specified disorders of the skin and subcutaneous tissue; S31.109A Unspecified open wound of abdominal wall, unspecified quadrant without penetration into peritoneal cavity, initial encounter | CPT/HCPCS: 99213 ==

== ENCOUNTER → 2024-09-11 10:00 | Outpatient (CLI) | payer MEDICARE, SELFPAY | LOC: WC 10:00 | PROVIDERS: PCP Family Medicine; Referring Provider Dermatology MOHS-Micrographic Surgery; Visit Provider Surgery | DX: T81.89XA Other complications of procedures, not elsewhere classified, initial encounter (principal); L98.8 Other specified disorders of the skin and subcutaneous tissue; S31.109A Unspecified open wound of abdominal wall, unspecified quadrant without penetration into peritoneal cavity, initial encounter; R21 Rash and other nonspecific skin eruption | CPT/HCPCS: 11042; 99213 ==

== ENCOUNTER → 2024-09-14 10:36 | Outpatient (CLI) | payer MEDICARE, SELFPAY | PROVIDERS: PCP Family Medicine; Referring Provider Dermatology MOHS-Micrographic Surgery; Visit Provider Physician Assistant | DX: T81.89XA Other complications of procedures, not elsewhere classified, initial encounter (principal); L98.8 Other specified disorders of the skin and subcutaneous tissue; S31.109A Unspecified open wound of abdominal wall, unspecified quadrant without penetration into peritoneal cavity, initial encounter; R21 Rash and other nonspecific skin eruption | CPT/HCPCS: 99213 ==

== ENCOUNTER → 2024-09-17 09:41 | Outpatient (CLI) | payer MEDICARE, SELFPAY | PROVIDERS: PCP Family Medicine; Referring Provider Dermatology MOHS-Micrographic Surgery; Visit Provider Physician Assistant | DX: T81.89XA Other complications of procedures, not elsewhere classified, initial encounter (principal); L98.8 Other specified disorders of the skin and subcutaneous tissue; S31.109A Unspecified open wound of abdominal wall, unspecified quadrant without penetration into peritoneal cavity, initial encounter | CPT/HCPCS: 11042; 99213 ==

== ENCOUNTER → 2024-09-21 10:53 | Outpatient (CLI) | payer MEDICARE, SELFPAY | PROVIDERS: PCP Family Medicine; Referring Provider Dermatology MOHS-Micrographic Surgery; Visit Provider Physician Assistant | DX: T81.89XA Other complications of procedures, not elsewhere classified, initial encounter (principal); L98.8 Other specified disorders of the skin and subcutaneous tissue; S31.109A Unspecified open wound of abdominal wall, unspecified quadrant without penetration into peritoneal cavity, initial encounter | CPT/HCPCS: 99213 ==

== ENCOUNTER → 2024-09-25 10:01 | Outpatient (CLI) | payer MEDICARE, SELFPAY | PROVIDERS: PCP Family Medicine; Referring Provider Dermatology MOHS-Micrographic Surgery; Visit Provider Surgery | DX: T81.89XA Other complications of procedures, not elsewhere classified, initial encounter (principal); L98.8 Other specified disorders of the skin and subcutaneous tissue; S31.104A Unspecified open wound of abdominal wall, left lower quadrant without penetration into peritoneal cavity, initial encounter | CPT/HCPCS: 97602; 99213 ==

== ENCOUNTER → 2024-09-28 10:00 | Outpatient (CLI) | payer MEDICARE, SELFPAY | PROVIDERS: PCP Family Medicine; Referring Provider Family Medicine; Visit Provider Surgery | DX: T81.89XA Other complications of procedures, not elsewhere classified, initial encounter (principal); L98.8 Other specified disorders of the skin and subcutaneous tissue; S31.109A Unspecified open wound of abdominal wall, unspecified quadrant without penetration into peritoneal cavity, initial encounter | CPT/HCPCS: 99213 ==

== ENCOUNTER → 2024-10-02 10:12 | Outpatient (CLI) | payer MEDICARE, SELFPAY | PROVIDERS: PCP Family Medicine; Referring Provider Family Medicine; Visit Provider Surgery | DX: T81.89XA Other complications of procedures, not elsewhere classified, initial encounter (principal); L98.8 Other specified disorders of the skin and subcutaneous tissue; S31.103A Unspecified open wound of abdominal wall, right lower quadrant without penetration into peritoneal cavity, initial encounter; C43.9 Malignant melanoma of skin, unspecified | CPT/HCPCS: 11042 ==

== ENCOUNTER → 2024-10-09 10:15 | Outpatient (CLI) | payer MEDICARE, SELFPAY | LOC: WC 11-02 08:59 | PROVIDERS: Family Provider Dermatology MOHS-Micrographic Surgery; PCP Family Medicine; Referring Provider Dermatology MOHS-Micrographic Surgery; Visit Provider Surgery | DX: T81.89XA Other complications of procedures, not elsewhere classified, initial encounter (principal); S31.103A Unspecified open wound of abdominal wall, right lower quadrant without penetration into peritoneal cavity, initial encounter; L98.8 Other specified disorders of the skin and subcutaneous tissue; R60.0 Localized edema; C43.9 Malignant melanoma of skin, unspecified | CPT/HCPCS: 11042; 99213 ==

== ENCOUNTER → 2024-10-11 09:45 | Outpatient (CLI) | payer MEDICARE, SELFPAY ==
[2024-10-11 10:01] LABS: Add Manual Diff / Slide Review NO; Basophils Absolute Auto 100 /uL (0-100); Eosinophils Absolute Auto 300 /uL (0-450); Eosinophils Percent Auto 2.9 % (2-4); Hematocrit 39.2 % (41-53); Hemoglobin 13.3 g/dL (13.5-17.5); Lymphocytes Absolute Auto 2600 /uL (1100-4500); Lymphocytes Percent Auto 30.6 % (25-40); Mean Corpuscular HGB Conc 33.8 % (30-36); Mean Corpuscular Hemoglobin 33.2 PG (26-34); Mean Corpuscular Volume 98.1 fL (80-100); Monocytes Absolute Auto 700 /uL (0-900); Monocytes Percent Auto 8.4 % (3-14); Neutrophils Absolute Auto 4900 /uL (1500-7000); Neutrophils Percent Auto 57.1 % (50-75); Platelet Count 208 X10^3/uL (150-400); Red Blood Cell Count 3.99 X10^6/uL (4.5-5.9); Red Cell Distribution Width 15.5 % (11.6-14.8); White Blood Cell Count 8.6 X10^3/uL (4.5-11.0)
[2024-10-11 10:25] LABS: Hemoglobin A1C% w Est Avg Glu 5.8 % (4.0-6.0)
[2024-10-11 10:41] LABS: Cholesterol 171 mg/dL (140-199); HDL Cholesterol 97 mg/dL (40-60); LDL Cholesterol Calculated 51 mg/dL (<100); Triglycerides 115 mg/dL (35-150)
[2024-10-11 10:53] LABS: Free T3, Triiodothyronine Free 3.26 pg/mL (2.77-5.27)
[2024-10-11 11:06] LABS: Thyroid Stimulating Hormone 4.86 uIU/mL (0.47-4.68)
== END ==
PROVIDERS: PCP Family Medicine; Referring Provider Family Medicine; Visit Provider Family Medicine
DX: K62.5 Hemorrhage of anus and rectum (principal); R73.01 Impaired fasting glucose; E03.9 Hypothyroidism, unspecified; I10 Essential (primary) hypertension; E78.2 Mixed hyperlipidemia
CPT/HCPCS: 36415; 80061; 83036; 84439; 84443; 84481; 85025

== ENCOUNTER → 2024-10-16 10:07 | Outpatient (CLI) | payer MEDICARE, SELFPAY | PROVIDERS: Family Provider Dermatology MOHS-Micrographic Surgery; PCP Family Medicine; Referring Provider Dermatology MOHS-Micrographic Surgery; Visit Provider Surgery | DX: S31.103D Unspecified open wound of abdominal wall, right lower quadrant without penetration into peritoneal cavity, subsequent encounter (principal); C43.9 Malignant melanoma of skin, unspecified | CPT/HCPCS: 99213 ==

== ENCOUNTER → 2024-10-23 13:30 | Outpatient (CLI) | payer MEDICARE, SELFPAY | LOC: WC 13:31 | PROVIDERS: Family Provider Dermatology MOHS-Micrographic Surgery; PCP Family Medicine; Referring Provider Dermatology MOHS-Micrographic Surgery; Visit Provider Surgery | DX: C43.9 Malignant melanoma of skin, unspecified (principal); S31.103D Unspecified open wound of abdominal wall, right lower quadrant without penetration into peritoneal cavity, subsequent encounter | CPT/HCPCS: 99211; 99213 ==

== ENCOUNTER 2024-11-13 11:41 | Day surgery (SDC) | payer MEDICARE, SELFPAY ==
[2024-11-07 08:01] VITALS: BMI 32.3
[2024-11-13] VITALS (7 sets, daily range): BP systolic 139–199; BP diastolic 72–88; PULSE 57–69; RESP 12–18; TEMP 36.4–36.9; O2SAT 95–99; BMI 32.3
[2024-11-13] MEDS: LACTATED RINGERS 1,000 ML 42 ML IV (12:04)
--- NOTE | 2024-11-13 12:06 | PM.PREOP ---
Pre-operative Note Interval Note History & Physical reviewed/Exam performed by Physician: Yes Changes to H&P: No
[2024-11-13] MEDS: CLINDAMYCIN 900 MG/50 ML PIGGYBACK 50 MG IV (12:23)
[2024-11-13] MEDS: LIDOCAINE 1% 20 ML INJ (12:37)
[2024-11-13] MEDS: BUPIVACAINE 0.5% W/ EPI (PF) 30 ML VIAL INJ (12:37)
--- NOTE | 2024-11-13 12:42 | SUR.OPER ---
Supine on padded OR bed, head on pillow, arms secured on padded arm boards at <90 degrees abduction, legs uncrossed, safety belt at abdomen, tape over blanket over lower legs.
--- NOTE | 2024-11-13 13:24 | PM.OP.1 ---
Operative Date/Time/Diagnoses Date of procedure: 11/13/24 Time of procedure: 13:24 Pre-op diagnosis: Right inguinal hernia Post-op diagnosis: same (Same, fat containing indirect hernia) Procedure & Clinicians Procedure: Open repair of right inguinal hernia with mesh, large Bard PerFix plug and patch Same procedure as scheduled: Yes Indications: Painful right inguinal hernia Surgeon: Viktor Correa Thermal Engineer: Tyshawn Hodgson Anesthesia Type: MAC +/- Operative Notes Findings: Fat containing indirect hernia Closure Type: primary Specimen(s): none sent Estimated Blood Loss (mL): 15 Blood products transfused: none Procedure in detail: Patient was brought to the operating room suite. General anesthesia was induced. The groin was shaved prepped and draped in the usual fashion. Total 30 mL of 0.5% Marcaine was used to perform an ilioinguinal nerve block and cord block and field block. Transverse incision was made over the groin and carried down to the external oblique fibers with Bovie electrocautery. The external oblique fibers were opened along the direction of the fibers and retracted superiorly and inferiorly. The floor of the inguinal canal was inspected to evaluate for direct defect. The cord structures were ensnared with a [place] drain. There was an indirect defect that was dissected free from the cord structures and along with the large cord lipoma was reduced back into the abdomen. A large Bard PerFix plug was placed through the indirect defect. A patch was placed over the floor. 2-0 PDS was used to affix the patch from Westley's ligament with a running stitch inferiorly along the inguinal ligament. The 2 leaflets and plug were all brought together and affixed to recreate the deep ring. Another 2-0 PDS suture was used to affix the mesh to the conjoined tendon thus reapproximating the floor. The ilioinguinal nerve was identified and neurolysis was performed. External oblique was closed with running 3-0 Vicryl. Shasta's closed 3-0 Vicryl. Skin was closed with 4-0 Monocryl and Dermabond. Patient tolerated the procedure well was transferred to PACU in stable condition for anticipated same-day discharge. Complications: none Post-operative Condition: stable Disposition: PACU Plan for aftercare: Home
[2024-11-13] MEDS: ACETAMINOPHEN 325 MG TABLET 975 MG PO (13:34)
[2024-11-13] MEDS: TIZANIDINE 4 MG TABLET 2 MG PO (13:34)
== END 2024-11-13 14:11 | disposition home or self-care (01) ==
PROVIDERS: Family Provider Dermatology MOHS-Micrographic Surgery; PCP Family Medicine; Referring Provider Surgery; Visit Provider Surgery
PROC: (CPT 49505; principal; 2024-11-13 13:15)
DX: K40.90 Unilateral inguinal hernia, without obstruction or gangrene, not specified as recurrent (principal); D17.6 Benign lipomatous neoplasm of spermatic cord
CPT/HCPCS: 49505; C1781; J2405; J2704; J3010

== ENCOUNTER → 2024-11-22 15:22 | Outpatient (CLI) | payer MEDICARE, SELFPAY ==
--- NOTE | 2024-11-22 15:23 | DI.US.S_ITS ---
PROCEDURE: US SOFT TISSUE HEAD AND NECK INDICATIONS: BILATERAL PALPABLE LUMP/TENDER LT>RT AT TMJ AREA TECHNIQUE: Real-time scanning was performed of the neck region of interest, with image documentation. COMPARISON: None. FINDINGS: Sonographic images of the parotid glands were obtained. Focus of decreased echogenicity within the left parotid gland is present measuring 1.5 x 1.3 x 0.6 cm. It is poorly visualized secondary to patient body habitus. IMPRESSION: 1.5 cm focus of decreased attenuation within the left parotid gland. While this could represent a periparotid lymph node, other more aggressive etiologies cannot be definitively excluded. CT neck with contrast is recommended. Dictated by: Wendy Estrada M.D. on 11/22/2024 at 17:14 Approved by: Wendy Estrada M.D. on 11/22/2024 at 17:14
== END ==
PROVIDERS: Family Provider Dermatology MOHS-Micrographic Surgery; PCP Family Medicine; Referring Provider Family Medicine; Visit Provider Family Medicine
DX: M79.89 Other specified soft tissue disorders (principal)
CPT/HCPCS: 76536

== ENCOUNTER → 2024-11-23 13:08 | Outpatient (CLI) | payer MEDICARE, SELFPAY ==
[2024-11-23 13:42] LABS: Estimated Glomerular Filt Rate 48 mL/min (>60)
== END ==
PROVIDERS: Radiology Diagnostic Radiology; Family Provider Dermatology MOHS-Micrographic Surgery; PCP Family Medicine
DX: M54.9 Dorsalgia, unspecified (principal)
CPT/HCPCS: 82565

== ENCOUNTER → 2024-11-25 11:48 | Outpatient (CLI) | payer MEDICARE, SELFPAY ==
--- NOTE | 2024-11-25 11:49 | DI.CT.S_ITS ---
PROCEDURE: CT SOFT TISSUE NECK W CON INDICATIONS: parotid mass TECHNIQUE: After the administration of intravenous contrast, 3.0 mm axial sections acquired from the sella to the aortic arch. Additional oblique axial 3.0 mm sections acquired through the pharynx. 3 mm thick coronal and sagittal reformats were generated. For radiation dose reduction, the following was used: automated exposure control. COMPARISON: [facility], , US SOFT TISSUE HEAD AND NECK, 11/22/2024, 15:41. FINDINGS: Image quality: Excellent. Lymph nodes: No enlarged lymph nodes seen throughout the neck. Vessels: Visualized vasculature appears patent. Neck spaces: The oropharynx, nasopharynx, and pharynx demonstrate no mucosal lesions. The vocal cords, false vocal cords, pyriform sinuses, epiglottis, vallecula, and tongue base all appear normal. Extramucosal spaces appear unremarkable. Glands: The parotid and submandibular glands appear normal. Previous area of concern on ultrasound appears to correlate to a nonenlarged parotid lymph node. Thyroid gland is unremarkable. Miscellaneous: Visualized brain and orbits appear normal. Lung apices appear clear. Superficial soft tissues appear normal. Bones: No suspicious bony lesions. Visualized sinuses and mastoids appear unremarkable. IMPRESSION: Left parotid focus of concern on ultrasound appears to correlate to a parotid lymph node. Dictated by: Wendy sEtrada M.D. on 11/26/2024 at 15:50 Approved by: Wendy Estrada M.D. on 11/26/2024 at 15:51
== END ==
PROVIDERS: Family Provider Dermatology MOHS-Micrographic Surgery; PCP Family Medicine; Referring Provider Family Medicine; Visit Provider Family Medicine
DX: K11.8 Other diseases of salivary glands (principal); M79.89 Other specified soft tissue disorders
CPT/HCPCS: 70491; Q9967

== ENCOUNTER → 2024-12-06 13:43 | Outpatient (CLI) | payer MEDICARE, SELFPAY ==
[2024-12-06 15:45] LABS: TSH w/ Reflex to FT4 6.32 uIU/mL (0.47-4.68)
[2024-12-06 16:12] LABS: Free T4, Direct Thyroxine 1.01 ng/dL (0.78-2.19)
== END ==
LOC: LAB 13:44
PROVIDERS: Family Provider Dermatology MOHS-Micrographic Surgery; PCP Family Medicine; Referring Provider Family Medicine; Visit Provider Family Medicine
DX: E03.9 Hypothyroidism, unspecified (principal)
CPT/HCPCS: 36415; 84439; 84443

== ENCOUNTER → 2025-01-25 15:51 | Outpatient (CLI) | payer MEDICARE, SELFPAY ==
[2025-01-25 17:13] LABS: Free T3, Triiodothyronine Free 3.75 pg/mL (2.77-5.27); Free T4, Direct Thyroxine 1.31 ng/dL (0.78-2.19)
[2025-01-25 17:27] LABS: Thyroid Stimulating Hormone 4.32 uIU/mL (0.47-4.68)
== END ==
PROVIDERS: Family Provider Dermatology MOHS-Micrographic Surgery; PCP Family Medicine; Referring Provider Family Medicine; Visit Provider Family Medicine
DX: E03.9 Hypothyroidism, unspecified (principal)
CPT/HCPCS: 36415; 84439; 84443; 84481

== ENCOUNTER 2025-02-25 10:24 | Day surgery (SDC) | payer MEDICARE, SELFPAY ==
--- NOTE | 2025-02-25 | PATH_ITS ---
[facility] Accession Number: [id number] No. of containers..02 Tissue . 01 Material submitted: . PART A: colon - COLON, TRANSVERSE POLYP PART B: rectum - RECTUM POLYP . 01 Diagnosis: Part A: COLON, TRANSVERSE POLYP : Colonic mucosa with no diagnostic alterations. No neoplasm or definite polyp identified. . Specimen Comments: Additional step sections were examined. . Part B: RECTUM POLYP: Tubular adenoma. [facility] 03/04/2025 1358 Local . 01 Electronically signed: . Melvin Oleary MD, Pathologist NPI- [id number] . 01 Gross description: . Part A: COLON, TRANSVERSE POLYP : Received in formalin is 1 fragment(s) of johnson, soft tissue measuring 0.2 x 0.1 x 0.1 cm submitted entirely in 1 cassette(s) . Part B: RECTUM POLYP: Received in formalin are 3 fragment(s) of johnson, soft tissue measuring 0.1 x 0.1 x 0.1 cm to 0.3 x 0.2 x 0.1 cm submitted entirely in 1 cassette(s) /[facility] 03/04/2025 1358 Local . 01 Pathologist provided ICD-10: D12.8, K63.5 . 01 CPT . 614927, 894404 Specimen Comment: A courtesy copy of this report has been sent to [phone] Performed at: 01 [facility] [address], [place], [place] [id number] MD Melvin Oleary MD Phone: [phone]
[2025-02-25 10:59] VITALS: BP 170/65; PULSE 63; RESP 14; TEMP 36.4; O2SAT 96
[2025-02-25] MEDS: LACTATED RINGERS 1,000 ML 42 ML IV (10:59)
--- NOTE | 2025-02-25 11:12 | P.HP_ITS ---
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) Pain of right inguinal ring Nostril sore History of asthma Wheezing Hypothyroidism (acquired) Fecal soiling due to fecal incontinence Acute bacterial sinusitis Elevated ALT measurement Chronic left-sided lumbar radiculopathy Lumbar radiculopathy, acute Transaminitis Normocytic anemia, not due to blood loss Low level of low-density lipoprotein (LDL) Bilateral lower extremity edema White coat syndrome with hypertension Resistant hypertension Allergic rhinitis Infected abrasion Hematoma and contusion Fasting hyperglycemia Peripheral neuropathy Obesity (BMI 30-39.9) Ankle swelling BRBPR (bright red blood per rectum) Alcohol abuse Hiatal hernia Back pain Obstructive sleep apnea URI (upper respiratory infection) Essential hypertension (04/26/17) Body mass index (BMI) of 32.0 to 32.9 in adult (01/03/17) Depression (11/20/15) Mixed hyperlipidemia (11/20/15) Subhepatic abscess Surgical History (Updated 11/07/24 @ 08:44 by Helena Owens RN) Status post Mohs surgery (2023) Hx of left inguinal hernia repair Hx of cholecystectomy History of knee surgery History of arthroscopic surgery of shoulder History of total right hip arthroplasty Social History marital status: unmarried,single household members: none lives independently: Yes occupational status: previously employed Smoking Status: Never smoker alcohol intake: current substance use type: does not use Meds Home Medications and Allergies Home Medications Medication Instructions Recorded Confirmed Type aspirin 81 mg tablet,delayed 81 mg PO DAILY 04/13/22 02/25/25 History release multivitamin 1 tab PO DAILY 04/13/22 02/12/25 History albuterol sulfate 90 mcg/actuation 2 puff inhalation Q6H PRN 05/15/24 02/25/25 Rx aerosol inhaler shortness of breath or wheezing #8.5 grams diltiazem HCl 60 mg tablet See Rx Instructions .Route 08/08/24 02/25/25 Rx .COMPLEX #180 tabs citalopram 20 mg tablet 20 mg PO DAILY #90 tabs 08/10/24 02/25/25 Rx hydrochlorothiazide 25 mg tablet 25 mg PO QAM #90 tabs 08/21/24 02/25/25 Rx losartan 50 mg tablet See Rx Instructions .Route 08/21/24 02/25/25 Rx .COMPLEX #180 tabs omeprazole 20 mg capsule,delayed 20 mg PO DAILY #90 caps 08/21/24 02/25/25 Rx release atorvastatin 20 mg tablet See Rx Instructions .Route 10/18/24 02/25/25 Rx .COMPLEX #90 tabs furosemide 20 mg tablet 20 mg PO QAM #90 tabs 01/03/25 02/25/25 Rx levothyroxine 100 mcg tablet 100 mcg PO DAILY #90 tabs 02/01/25 02/25/25 Rx budesonide-formoterol HFA 160 2 puff inhalation BID #10.2 grams 02/12/25 02/25/25 Rx mcg-4.5 mcg/actuation aerosol inhaler (Symbicort) fluorometholone 0.1 % eye drp EYE-BOTH 02/12/25 02/12/25 History drops,suspension fluorouracil 5 % topical cream 1 applic topical BID 02/12/25 02/12/25 History spacer #1 ea 02/12/25 02/12/25 Rx Allergies Allergy/AdvReac Type Severity Reaction Status Date / Time cefazolin [CEFAZOLIN] Allergy Mild Hives Verified 02/25/25 10:50 cetirizine [CETIRIZINE] Allergy Mild Rash Verified 02/25/25 10:50 hydroxyzine [HYDROXYZINE] Allergy Mild Rash Verified 02/25/25 10:50 oxycodone [OXYCODONE] Allergy Mild RASH Verified 02/25/25 10:50 Exam Vital Signs (past 8 hours): - 02/25/25 10:59 Temperature 97.5 F L Pulse Rate 63 Respiratory Rate 14 Blood Pressure 170/65 H Pulse Oximetry 96 Oxygen Delivery Method Room Air Oxygen Delivery Method Room Air Assessment & Plan Assessment & Plan narrative: Last procedure over 10 years ago and was incomplete with poor prep. Prep cm better this time. Need for colorectal cancer screening. Time-Based Coding :: [TOTAL MINUTES] spent with patient and on the chart (including review of chart, obtaining history, exam, reviewing outside data, placing orders, documenting exam and treatment plan, and counseling patient) on [DATE]. PROFEE Breakfast Supervisor Document charge(s): No
--- NOTE | 2025-02-25 11:13 | PM.OP.COLON ---
Operative Date/Time/Diagnoses Date of procedure: 02/25/25 Time of procedure: 11:37 Pre-op diagnosis: See indication and Post-op diagnosis: same Procedure & Clinicians Study performed: Colonoscopy Same procedure as scheduled: Yes Indications: Screening Surgeon: Luis A Mendez Procedure Notes Procedure in detail: After informed consent was obtained the patient was placed in left lateral decubitus position. Video colonoscope was inserted in the rectum slowly advanced. Preparation was good. On slow withdrawal mucosa was carefully examined. The scope was removed. The patient did well. Blood loss none Complications none Sedation mac Findings 1. 5 mm sessile polyp at the splenic flexure. This was biopsied with Jumbo biopsy forceps. It may not have been completely removed as it was difficult to assess post polypectomy. 2. 8 mm sessile polyp in the rectum snared and removed completely 3. Difficult and long colon. Pending the results of the pathology we will consider follow-up colonoscopy though at his age and these findings this most likely is his last colonoscopy
[2025-02-25 11:38] VITALS: BP 86/47; PULSE 50; RESP 14; TEMP 36.7; O2SAT 90
[2025-02-25 11:43] VITALS: BP 106/56; PULSE 65; RESP 16; O2SAT 96
[2025-02-25 11:48] VITALS: BP 142/64; PULSE 63; RESP 15; TEMP 36.7; O2SAT 97
[2025-02-25 11:55] VITALS: BP 140/67; PULSE 61; RESP 16; TEMP 36.7; O2SAT 96
== END 2025-02-25 12:19 | disposition home or self-care (01) ==
PROVIDERS: Family Provider Dermatology MOHS-Micrographic Surgery; PCP Family Medicine; Referring Provider Internal Medicine Gastroenterology; Visit Provider Internal Medicine Gastroenterology
PROC: 0DJD8ZZ Inspection of Lower Intestinal Tract, Via Natural or Artificial Opening Endoscopic (ICD-10-PCS; CPT 45378; principal; 2025-02-25 11:30)
DX: Z12.11 Encounter for screening for malignant neoplasm of colon (principal); K63.5 Polyp of colon; D12.3 Benign neoplasm of transverse colon
CPT/HCPCS: 45385; 45380; J2704

== ENCOUNTER → 2025-03-21 13:30 | Outpatient (CLI) | payer MEDICARE, SELFPAY ==
[2025-03-21 14:08] LABS: Add Manual Diff / Slide Review NO; Basophils Absolute Auto 0 /uL (0-100); Basophils Percent Auto 0.4 % (0-2); Eosinophils Absolute Auto 100 /uL (0-450); Eosinophils Percent Auto 1.1 % (2-4); Hematocrit 37.7 % (41-53); Lymphocytes Absolute Auto 1700 /uL (1100-4500); Lymphocytes Percent Auto 18.3 % (25-40); Mean Corpuscular HGB Conc 34.4 % (30-36); Mean Corpuscular Hemoglobin 33.6 PG (26-34); Mean Corpuscular Volume 97.7 fL (80-100); Monocytes Absolute Auto 700 /uL (0-900); Monocytes Percent Auto 7.9 % (3-14); Neutrophils Absolute Auto 6700 /uL (1500-7000); Neutrophils Percent Auto 72.3 % (50-75); Platelet Count 219 X10^3/uL (150-400); Red Blood Cell Count 3.86 X10^6/uL (4.5-5.9); Red Cell Distribution Width 14.7 % (11.6-14.8); White Blood Cell Count 9.2 X10^3/uL (4.5-11.0)
== END ==
PROVIDERS: Family Provider Dermatology MOHS-Micrographic Surgery; PCP Family Medicine; Referring Provider Student in an Organized Health Care Education/Training Program; Visit Provider Student in an Organized Health Care Education/Training Program
DX: J45.909 Unspecified asthma, uncomplicated (principal)
CPT/HCPCS: 36415; 82785; 85025; 86003

== ENCOUNTER → 2025-05-02 13:39 | Outpatient (CLI) | payer MEDICARE, SELFPAY ==
--- NOTE | 2025-05-02 13:40 | DI.RAD.S_ITS ---
PROCEDURE: XR FOOT LT 2V INDICATIONS: Other enthesopathy of unspecified foot and ankle TECHNIQUE: 3 views of the foot were acquired. COMPARISON: None. FINDINGS: Bones: Moderate pes planus and mild hammertoe deformities 2nd through 5th digits. Joints: Moderate degeneration ankle mortise and mild degeneration 1st MTP and 2nd through 5th DIP joints. Prominent dorsal periarticular spurring seen in the navicular cuneiform region Soft tissues: Heavy ossification Achilles and plantar tendon insertion on the calcaneus IMPRESSION: Chronic findings Dictated by: Jay English M.D. on 05/03/2025 at 13:53 Approved by: Jay English M.D. on 05/03/2025 at 13:54
--- NOTE | 2025-05-02 13:40 | DI.RAD.S_ITS ---
PROCEDURE: XR FOOT RT 2V INDICATIONS: Other enthesopathy of unspecified foot and ankle TECHNIQUE: Two views of the foot were acquired. COMPARISON: None. FINDINGS: Bones: Old ununited fracture posterior malleolus noted Joints: Mild degeneration 1st MTP and 2nd through 5th DIP joints Soft tissues: Heavy ossification Achilles tendon insertion on the calcaneus. Metallic fixation rico seen over the posterior calcaneus. Mild diffuse soft tissue swelling. IMPRESSION: Chronic findings Dictated by: Jay English M.D. on 05/03/2025 at 13:54 Approved by: Jay English M.D. on 05/03/2025 at 13:55
== END ==
PROVIDERS: Family Provider Dermatology MOHS-Micrographic Surgery; PCP Family Medicine; Referring Provider Podiatrist; Visit Provider Podiatrist
DX: M77.50 Other enthesopathy of unspecified foot and ankle (principal); M19.071 Primary osteoarthritis, right ankle and foot; R22.41 Localized swelling, mass and lump, right lower limb; Z87.81 Personal history of (healed) traumatic fracture
CPT/HCPCS: 73620

== ENCOUNTER 2025-05-04 09:03 | Emergency (ER) | payer MEDICARE, SELFPAY ==
[2025-05-04] VITALS (13 sets, daily range): BP systolic 158–213; BP diastolic 65–98; PULSE 54–71; RESP 10–23; TEMP 36.8; O2SAT 93–97; BMI 33.6
--- NOTE | 2025-05-04 09:11 | EKG_ITS ---
[facility] [place] [id number] [place] [id number] Test Date: 2025-05-04 Pat Name: Josh Jones Department: Room: Gender: Male Humidifier Attendant: DIXON : 1945 Requested By: Order Number: [id number] Reading MD: Arslan Garcia Measurements Intervals Massey Rate: 71 P: 35 FL: 188 QRS: -72 QRSD: 104 T: 42 QT: 408 QTc: 443 Interpretive Statements Sinus rhythm with premature supraventricular complexes Left axis deviation Electronically Signed On 05-04-2025 10:27:28 PDT by Arslan Garcia
--- NOTE | 2025-05-04 09:19 | DI.RAD.S_ITS ---
PROCEDURE: XR CHEST 1V INDICATIONS: palpitations TECHNIQUE: One view of the chest was acquired. COMPARISON: [facility], CR, XR CHEST 2V, 12/07/2023, 10:33. FINDINGS: Surgical changes and devices: None. Lungs and pleura: Lungs are clear. No pleural effusions or pneumothorax. Mediastinum: Mediastinal contours appear normal. Heart size is normal. Bones and chest wall: No suspicious bony lesions. Overlying soft tissues appear unremarkable. IMPRESSION: No acute cardiopulmonary abnormality is seen. Dictated by: Ashutosh Zavaleta M.D. on 05/04/2025 at 9:05 Approved by: Ashutosh Zavaleta M.D. on 05/04/2025 at 9:06
--- NOTE | 2025-05-04 09:20 | ED.ARRPALP ---
HPI - Arrhythmia/Palpitations General Chief Complaint: Arrhythmia/Palpitations Stated Complaint: Arrythmia Time Seen by Provider: 05/04/25 09:08 Source: patient Mode of arrival: Ambulatory History of Present Illness HPI narrative: 79-year-old gentleman with a history of skin cancers including a surgically resected melanoma, hypothyroidism, likely alcohol use disorder, obesity, hypertension, hyperlipidemia no prior cardiac events who presents complaining of palpitations this morning. It sounds like he experienced. Where he is having 3 beats and a pause 3 beats an a pause that extended long enough he was concerned. This is resolved upon arrival in the emergency department. He states that he is taking all medications. He notes that he has been slightly more fatigued, requiring a daily nap which is unusual, over the last week. He is scheduled for an echocardiogram next Tuesday. He is not anticoagulated but does take a baby aspirin daily. No nausea, vomiting, overt chest pain or chest tightness. No change to his lower extremity edema, no constipation Related Data Home Medications ?Medication ?Instructions ?Recorded ?Confirmed aspirin 81 mg tablet,delayed 81 mg PO DAILY 04/13/22 04/04/25 release multivitamin 1 tab PO DAILY 04/13/22 04/04/25 fluorometholone 0.1 % eye drp EYE-BOTH 02/12/25 04/04/25 drops,suspension fluorouracil 5 % topical cream 1 applic topical BID 02/12/25 04/04/25 Previous Rx's ?Medication ?Instructions ?Recorded albuterol sulfate 90 mcg/actuation 2 puff inhalation Q6H PRN 05/15/24 aerosol inhaler shortness of breath or wheezing #8.5 grams diltiazem HCl 60 mg tablet See Rx Instructions .Route 08/08/24 .COMPLEX #180 tabs citalopram 20 mg tablet 20 mg PO DAILY #90 tabs 08/10/24 hydrochlorothiazide 25 mg tablet 25 mg PO QAM #90 tabs 08/21/24 losartan 50 mg tablet See Rx Instructions .Route 08/21/24 .COMPLEX #180 tabs omeprazole 20 mg capsule,delayed 20 mg PO DAILY #90 caps 08/21/24 release atorvastatin 20 mg tablet See Rx Instructions .Route 10/18/24 .COMPLEX #90 tabs furosemide 20 mg tablet 20 mg PO QAM #90 tabs 01/03/25 levothyroxine 100 mcg tablet 100 mcg PO DAILY #90 tabs 05/09/25 spacer #1 ea 02/12/25 Allergies Allergy/AdvReac Type Severity Reaction Status Date / Time cefazolin (CEFAZOLIN) Allergy Mild Hives Verified 05/04/25 09:11 cetirizine (CETIRIZINE) Allergy Mild Rash Verified 05/04/25 09:11 hydroxyzine (HYDROXYZINE) Allergy Mild Rash Verified 05/04/25 09:11 oxycodone (OXYCODONE) Allergy Mild RASH Verified 05/04/25 09:11 Review of Systems Review of Systems Narrative: Pertinent positive and negative findings as per HPI Patient History Medical History (Updated 05/04/25 @ 12:57 by Lana Zhang MD) Segmental and somatic dysfunction of abdomen and other regions Lower extremity edema HAYNES (dyspnea on exertion) Chest tightness Sacral region somatic dysfunction Segmental and somatic dysfunction of pelvic region Lumbar region somatic dysfunction Strain of right psoas muscle Pain in right lumbar region of back Asthma Balance problem Parotid mass Mass of soft tissue of face Basal cell carcinoma of right ear Squamous cell carcinoma 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) Pain of right inguinal ring Hypothyroidism (acquired) Elevated ALT measurement Chronic left-sided lumbar radiculopathy Lumbar radiculopathy, acute Transaminitis Normocytic anemia, not due to blood loss Low level of low-density lipoprotein (LDL) Bilateral lower extremity edema White coat syndrome with hypertension Resistant hypertension Allergic rhinitis Infected abrasion Hematoma and contusion Peripheral neuropathy Obesity (BMI 30-39.9) Ankle swelling BRBPR (bright red blood per rectum) Alcohol abuse Hiatal hernia Obstructive sleep apnea URI (upper respiratory infection) Essential hypertension (04/26/17) Body mass index (BMI) of 32.0 to 32.9 in adult (01/03/17) Depression (11/20/15) Mixed hyperlipidemia (11/20/15) Subhepatic abscess Surgical History Status post Mohs surgery (2023) Hx of left inguinal hernia repair Hx of cholecystectomy History of knee surgery History of arthroscopic surgery of shoulder History of total right hip arthroplasty Social History marital status: unmarried,single household members: none lives independently: Yes occupational status: previously employed alcohol intake: current substance use type: does not use Smoking Status: Never smoker alcohol intake frequency: 0-2 drinks per day Exam Initial Vital Signs Initial Vital Signs: Vital Signs Temperature 98.2 F 05/04/25 09:11 Pulse Rate 71 05/04/25 09:11 Respiratory Rate 23 05/04/25 09:11 Blood Pressure 213/97 H 05/04/25 09:11 Pulse Oximetry 96 05/04/25 09:11 Oxygen Delivery Method Room Air 05/04/25 09:11 General: Healthy appearing, in no acute distress. Able to give a complete and coherent history. Well-nourished well-developed HEENT: Moist mucous membranes, normal sclera with reactive pupils, Neck: No JVD, supple Respiratory: Lungs are clear to auscultation, no wheezing no rales no rhonchi. Full and symmetrical air movement Cardiac: Regular rate and rhythm systolic ejection murmur. Abdomen: Soft, nontender, no rebound or guarding, no flank pain Skin: Warm and dry, no rashes Neurologic: Grossly neurologically intact with no obvious asymmetries or abnormalities Extremities: No trauma, well perfused Psych: Cooperative, appropriate insight and affect Course Orders Ordered: ED Orders 05/04/25 09:18 Complete Blood Count AUTO DIFF Stat 05/04/25 09:19 XR chest 1V Stat Comprehensive Metabolic Panel Stat Magnesium Stat NT-proBNP (BNP-Adult 18+) Stat Troponin I Stat EKG-12 Lead Stat Vital Signs Vital signs: Vital Signs - 8 hr 05/04/25 09:11 Temperature 98.2 F Pulse Rate 71 Respiratory Rate 23 Blood Pressure 213/97 H Pulse Oximetry 96 Oxygen Delivery Method Room Air MDM - Arrhythmia/Palpitations MDM Narrative Medical decision making narrative: CC: Palpitations Complicating co-morbidities: Scheduled for an echocardiogram next week, hyperlipidemia, hypothyroidism, hypertension Data collected from: patient Differential considered: PVCs, PACs, atrial fibrillation, electrolyte abnormalities, acute coronary syndrome Exam documented above, pertinent findings include: Exam is is benign with the exception of a 3/6 systolic ejection murmur. On telemetry he is in sinus rhythm without arrhythmia appreciated Lab Test results independently reviewed as above. Pertinent findings: CBC is unremarkable Chemistries show a bump in creatinine. In October creatinine was 1.48, today is 2.27. Slight increase in ALT and AST Troponin is undetectable BNP is unremarkable TSH was appropriate when checked in January Independently reviewed EKG: EKG shows sinus rhythm. No acute ischemia Imaging studies independently reviewed: Chest x-ray is unremarkable, no cardiomegaly or others fluid overload Discussion: 79-year-old gentleman with what sounds like PVCs in a trigeminy type pattern this morning. Has not had any further PVCs no evidence of other rhythm abnormalities, heart failure, acute coronary syndrome, significant electrolyte abnormalities. It is noted that his creatinine is increased compared to comparison in October. We will ask him to follow up with his primary care physician to see if Nephrology consultation we will be helpful. May be appropriate to recheck creatinine prior to that. At this time there was no evidence of life-threatening abnormality, no life-threatening rhythm pathology appreciated no evidence of acute coronary syndrome or significant electrolyte abnormalities in the setting of chronic kidney disease. Findings reviewed with the patient. Reassurance is given he will be discharged home with suggestions for follow up within 1-2 weeks to recheck his creatinine. Discharge Plan Departure Patient Disposition: Home Clinical Impression: Palpitations, Chronic kidney disease Instructions: DI for Arrhythmias Activity Restrictions/Additional Instructions: Thank you for coming in today I did not see any evidence for atrial fibrillation or any other life-threatening arrhythmia issues. It does look like you are slightly dehydrated in your chronic kidney disease may be progressing. I would suggest that you follow up with your primary care physician in the next 1-2 weeks with a recheck of your overall kidney function There is no evidence of heart attack, heart failure or other reasons for hospital admission today. If you find that you are getting worse or develop any new symptoms, please feel free to return to the emergency department for further evaluation. Prescriptions: No Action diltiazem HCl 60 mg tablet See Rx Instructions .ROUTE .COMPLEX Qty: 180 3RF Dose Instruction: TAKE ONE TABLET BY MOUTH TWICE DAILY Rx Instructions: TAKE ONE TABLET BY MOUTH TWICE DAILY citalopram 20 mg tablet 20 mg PO DAILY Qty: 90 3RF atorvastatin 20 mg tablet See Rx Instructions .ROUTE .COMPLEX Qty: 90 3RF Dose Instruction: TAKE ONE TABLET BY MOUTH ONE TIME DAILY AT BEDTIME Rx Instructions: TAKE ONE TABLET BY MOUTH ONE TIME DAILY AT BEDTIME furosemide 20 mg tablet 20 mg PO QAM Qty: 90 3RF levothyroxine 100 mcg tablet 100 mcg PO DAILY Qty: 90 3RF aspirin 81 mg tablet,delayed release (DR/EC) 81 mg PO DAILY multivitamin Tablet 1 tab PO DAILY albuterol sulfate 90 mcg/actuation HFA aerosol inhaler 2 puff INHALATION Q6H PRN (Reason: shortness of breath or wheezing) Qty: 8.5 5RF omeprazole 20 mg capsule,delayed release(DR/EC) 20 mg PO DAILY Qty: 90 3RF losartan 50 mg tablet See Rx Instructions .ROUTE .COMPLEX Qty: 180 3RF Dose Instruction: TAKE ONE TABLET BY MOUTH TWICE DAILY Rx Instructions: TAKE ONE TABLET BY MOUTH TWICE DAILY hydrochlorothiazide 25 mg tablet 25 mg PO QAM Qty: 90 3RF fluorometholone 0.1 % drops,suspension EYE-BOTH fluorouracil 5 % cream 1 applic topical BID (DME) spacer See Rx Instructions .ROUTE .MEDSUPPLY Qty: 1 0RF Rx Instructions: As directed, use with inhaler. Referrals: Rian Rashid DO [Primary Care Provider, Family Practice] Stand Alone Forms: Patient Portal/API
--- NOTE | 2025-05-04 09:20 | PC.NURSE ---
Pt reports irregular heart beat this morning that started at around 8 AM. Pt denies symptoms at this time.
[2025-05-04 09:30] LABS: Add Manual Diff / Slide Review NO; Hematocrit 38.7 % (41-53); Hemoglobin 13.3 g/dL (13.5-17.5); Lymphocytes Absolute Auto 2100 /uL (1100-4500); Mean Corpuscular HGB Conc 34.3 % (30-36); Mean Corpuscular Hemoglobin 33.6 PG (26-34); Mean Corpuscular Volume 97.9 fL (80-100); Platelet Count 208 X10^3/uL (150-400)
[2025-05-04 09:56] LABS: Alanine Aminotransferase 59 IU/L (<50); Albumin 4.4 g/dL (3.5-5.0); Albumin Globulin Ratio 1.4 (1.0-2.8); Alkaline Phosphatase 107 U/L (38-126); Blood Urea Nitrogen 45 mg/dL (9-20); Calcium 9.2 mg/dL (8.4-10.2); Carbon Dioxide 24 mmol/L (22-32); Chloride 104 mmol/L (98-107); Estimated Glomerular Filt Rate 29 mL/min (>60); Globulin 3.2 g/dL (1.7-4.1); Glucose 133 mg/dL (70-99); HEMOLYSIS < 15 (0-50); Magnesium 1.8 mg/dL (1.6-2.3); Potassium 4.2 mmol/L (3.4-5.1); Sodium 141 mmol/L (137-145); Total Protein 7.6 g/dL (6.3-8.2)
[2025-05-04 10:08] LABS: NT-proBNP (BNP-Adult 18+) 195 pg/mL (<450); Troponin I 0.012 ng/mL (0.01-0.034)
--- NOTE | 2025-05-04 12:19 | PC.NURSE ---
Pt remains calm and asymptomatic.
== END 2025-05-04 13:05 | disposition home or self-care (01) ==
PROVIDERS: Emergency Provider Emergency Medicine; Family Provider Dermatology MOHS-Micrographic Surgery; PCP Family Medicine
DX: R00.2 Palpitations (principal); N18.9 Chronic kidney disease, unspecified
CPT/HCPCS: 36415; 71045; 80053; 83735; 83880; 84484; 85025; 93005; 99283; 99284

== ENCOUNTER → 2025-05-07 15:58 | Outpatient (CLI) | payer MEDICARE, SELFPAY ==
--- NOTE | 2025-05-07 16:00 | DI.ECHO.S_ITS ---
[facility]+ [facility] : : [address] : : [place] : : [address] : : Phone: [phone] Echocardiogram Report + + :Name: SAV MARTINEZ Study Date: 05/07/2025 Height: 72 in : :[facility] ReadingLocation: Weight: 248 lb : : Gender: Male BSA: 2.3 m2 : :: 1945 Age: 79 yrs BP: 151/81 mmHg: :Reason For Study: INCREASED DYSPNEA ON EXERTION : :Ordering Physician: MARY COBB Performed By: Reginald Aranda : :Referring: MARY COBB : + + Interpretation Summary 1) Mildly increased left ventricular thickness (concentric) with normal size, normal wall motion, and normal systolic function (EF 55-60%). 2) Normal right ventricular size and function. 3) No significant valvular abnormalities. 4) Compared to the Echo done 09/17/2015, no significant change. Procedure: A two-dimensional transthoracic echocardiogram with color flow and Doppler was performed. The study quality was technically adequate. Comparison is made with the echocardiogram of 09/17/2015. The patient was in normal sinus rhythm during the exam. Left Ventricle: The left ventricle is normal in size. There is mild concentric left ventricular hypertrophy. There is no ventricular septal defect visualized. The ejection fraction is estimated to be 55-60%. There are no focal wall motion abnormalities. Diastolic parameters suggest a relaxation abnormality of the left ventricle, consistent with probable normal filling pressures. Right Ventricle: The right ventricle is normal in size and function. Atria: The left atrial size is normal. Right atrial size is normal. There is no Doppler evidence for an interatrial shunt. Mitral Valve: There is mild mitral annular calcification. The mitral valve leaflets are mildly calcified. There is no mitral regurgitation noted. Aortic Valve: The aortic valve is trileaflet. The aortic valve opens well. The aortic valve is mildly calcified. There is no aortic valve stenosis. No aortic regurgitation is present. Tricuspid Valve: The tricuspid valve leaflets are thin and pliable. No tricuspid regurgitation. Pulmonic Valve: The pulmonic valve is not well visualized. There is trace pulmonic regurgitation. Great Vessels: The aortic root is normal size. The dimensions of the ascending aorta are normal. The pulmonary is not well visualized. The inferior vena cava was not visualized. Pericardium/ Pleura There is no pericardial effusion. MMode/2D Measurements & Calculations LVIDd: 4.7 cm LVOT diam: 2.5 cm LVIDs: 3.4 cm Ao root diam: 3.5 cm FS: 28.9 % asc Aorta Diam: 3.5 cm EPSS: 0.68 cm IVSd: 1.3 cm LVPWd: 1.3 cm LV small. diameter/BSA (cm/m^2): 2.0 LV sys. diameter/BSA (cm/m^2): 1.4 LA A2 area: 17.9 cm2 RA long axis: 4.5 cm LA A4 area: 22.8 cm2 RA area: 12.5 cm2 LA length (vol): 5.5 cm RA vol: 29.8 ml LA vol: 63.2 ml RA : 12.8 ml/m2 LA vol index: 27.1 ml/m2 RVD1 (basal): 3.0 cm RVD2 (mid): 2.9 cm TAPSE: 3.5 cm Doppler Measurements & Calculations Ao V2 max: 152.1 cm/sec LVOT Max Reji: 105.1 cm/sec Ao V2 mean: 111.9 cm/sec LV V1 max P.4 mmHg Ao max P.3 mmHg LV V1 VTI: 22.6 cm Ao mean P.5 mmHg JOSEFA(I,D): 3.4 cm2 Ao V2 VTI: 31.9 cm JOSEFA(V,D): 3.3 cm2 sev ratio: 0.71 JOSEFA indexed to BSA (cm^2/m^2): 1.4 MV E max reji: 57.3 cm/sec PA V2 max: 114.2 cm/sec MV A max reji: 84.9 cm/sec PA V2 mean: 73.9 cm/sec MV E/A: 0.68 PA mean P.5 mmHg Med Peak E' Reji: 5.1 cm/sec PA pr(Accel): 55.0 mmHg E/E' med: 11.2 Lat Peak E' Reji: 6.2 cm/sec E/E' lat: 9.2 E/e' average: 10.2 MV dec time: 0.27 sec SV(LVOT): 107.5 ml Reading Physician:05:08 PM
== END ==
LOC: ECHO 15:59
PROVIDERS: Family Provider Dermatology MOHS-Micrographic Surgery; PCP Family Medicine; Referring Provider Family Medicine; Visit Provider Family Medicine
DX: R07.89 Other chest pain (principal); R06.09 Other forms of dyspnea; R60.0 Localized edema; I34.0 Nonrheumatic mitral (valve) insufficiency
CPT/HCPCS: 93306

== ENCOUNTER → 2025-07-03 09:40 | Outpatient (CLI) | payer MEDICARE, SELFPAY ==
[2025-07-03 10:32] LABS: Add Manual Diff / Slide Review NO; Hematocrit 38.4 % (41-53); Hemoglobin 13.0 g/dL (13.5-17.5); Lymphocytes Absolute Auto 2200 /uL (1100-4500); Mean Corpuscular HGB Conc 33.8 % (30-36); Mean Corpuscular Hemoglobin 33.3 PG (26-34); Mean Corpuscular Volume 98.5 fL (80-100); Platelet Count 220 X10^3/uL (150-400)
[2025-07-03 10:56] LABS: Alanine Aminotransferase 58 IU/L (<50); Albumin 4.4 g/dL (3.5-5.0); Albumin Globulin Ratio 1.5 (1.0-2.8); Alkaline Phosphatase 111 U/L (38-126); Blood Urea Nitrogen 35 mg/dL (9-20); Calcium 9.6 mg/dL (8.4-10.2); Carbon Dioxide 26 mmol/L (22-32); Chloride 106 mmol/L (98-107); Estimated Glomerular Filt Rate 54 mL/min (>60); Globulin 2.9 g/dL (1.7-4.1); Glucose 130 mg/dL (70-99); HEMOLYSIS < 15 (0-50); Potassium 4.8 mmol/L (3.4-5.1); Sodium 142 mmol/L (137-145); Total Protein 7.3 g/dL (6.3-8.2)
== END ==
PROVIDERS: PCP Family Medicine; Referring Provider Family Medicine; Visit Provider Family Medicine
DX: Z01.818 Encounter for other preprocedural examination (principal)
CPT/HCPCS: 36415; 80053; 85025

== ENCOUNTER → 2025-07-04 15:09 | Outpatient (CLI) | payer MEDICARE, SELFPAY ==
--- NOTE | 2025-07-04 15:10 | DI.RAD.S_ITS ---
PROCEDURE: XR ELBOW LT MIN 3V INDICATIONS: elbow pain TECHNIQUE: 3 views of the elbow were acquired. COMPARISON: [facility], CR, XR ELBOW LT MIN 3V, 12/07/2021, 11:12. FINDINGS: Bones: There is anatomic alignment. Stable appearance of olecranon spur as well as possible osteochondroma arising from the lateral humeral condyle. No new focal lesion seen Soft tissues: No elbow joint effusion. No suspicious soft tissue calcifications. IMPRESSION: Stable appearance of olecranon spurring on possible osteochondroma laterally, no new focal lesion seen. Dictated by: David Hinson M.D. on 07/07/2025 at 14:37 Approved by: David Hinson M.D. on 07/07/2025 at 14:38
--- NOTE | 2025-07-04 15:10 | DI.RAD.S_ITS ---
PROCEDURE: XR ELBOW RT MIN 3V INDICATIONS: elbow pain TECHNIQUE: 3 views of the elbow were acquired. COMPARISON: None. FINDINGS: Bones: There is anatomic alignment. There is a 7 mm osteochondroma arising from the distal humeral diaphysis anteriorly. There is also small olecranon spur as well as a 9.4 mm spur arising from the lateral humeral condyle. There is mild to moderate tricompartmental degenerative disease, with probable joint effusion. Soft tissues: No elbow joint effusion. No suspicious soft tissue calcifications. IMPRESSION: Degenerative changes and spurring, no acute focal osseous lesion seen. Dictated by: David Hinson M.D. on 07/07/2025 at 14:38 Approved by: David Hinson M.D. on 07/07/2025 at 14:40
== END ==
PROVIDERS: PCP Family Medicine; Referring Provider Family Medicine; Visit Provider Family Medicine
DX: D16.01 Benign neoplasm of scapula and long bones of right upper limb (principal); M77.8 Other enthesopathies, not elsewhere classified; M19.021 Primary osteoarthritis, right elbow; M25.529 Pain in unspecified elbow; G89.29 Other chronic pain
CPT/HCPCS: 73080

== ENCOUNTER → 2025-09-16 10:35 | Outpatient (CLI) | payer MEDICARE, SELFPAY ==
--- NOTE | 2025-09-16 10:43 | DI.MG.S_ITS ---
MM diagnostic mammo BI: 09/16/2025. BI-RADS: 2 CLINICAL: 80-year old male for bilateral diagnostic mammogram. No personal or first-degree family history of breast cancer. The patient reports a palpable abnormality and pain (3 months) in the left breast. The patient reports taking a blood pressure medication but is unable to recall the name of the medication. PRIOR EXAMS: No prior examinations available. MAMMOGRAPHY TECHNIQUE: 2D and 3D (tomosynthesis) digital mammographic views obtained, with additional images as needed for full coverage. Current study was also evaluated with a Computer Aided Detection (CAD) system. DENSITY A. The breasts are almost entirely fatty. MAMMOGRAPHY FINDINGS Right: No suspicious mass, asymmetry, microcalcification, or other abnormality seen. Left: Central, Retroareolar, Far Anterior depth: Underlying surface marker and correlating with palpable lump and pain/tenderness, there is an asymmetry consistent with gynecomastia. 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 IMPRESSION: Right * No evidence of malignancy. Left * No evidence of malignancy with benign findings. RECOMMENDATIONS Left * Clinical follow up is recommended for the patient's gynecomastia, with evaluation for etiologies including medication/drug-related factors, hormonal or systemic disorders. COMMENTS: Findings and recommendations were conveyed to the patient during today's evaluation. OVERALL ASSESSMENT CATEGORY BI-RADS-2: Benign. ELECTRONICALLY SIGNED: Nelli Reed M.D. on 09/16/2025 at 02:55:28 PM PT Interpreting Station ID: [id number]
== END ==
PROVIDERS: PCP Family Medicine; Referring Provider Family Medicine; Visit Provider Family Medicine
DX: N62 Hypertrophy of breast (principal); R92.313 Mammographic fatty tissue density, bilateral breasts; N63.0 Unspecified lump in unspecified breast; Z85.820 Personal history of malignant melanoma of skin
CPT/HCPCS: 77066; G0279